=== PATIENT | male | born 1975 | race Caucasian/White ===

== ENCOUNTER 2019-03-19 08:22 | Inpatient (IN) ==
[2019-03-19] MEDS ORDERED: NS 1,000 ML IV ONE ×2 (08:43→10:36)
--- NOTE | 2019-03-19 08:47 | EKG Report ---
Test Performed on : 03/19/2019 08:44:25 AM Test Reason : sob Blood Pressure : / mmHG Vent. Rate : 141 BPM Atrial Rate : 141 BPM P-R Int : 142 ms QRS Dur : 082 ms QT Int : 284 ms P-R-T Axes : 072 081 065 degrees QTc Int : 434 ms Sinus tachycardia. with occasional premature ventricular complexes. Otherwise normal ECG No previous ECGs available Unconfirmed Result
--- NOTE | 2019-03-19 08:57 | PROVIDER DOCUMENTATION ---
HPI-Respiratory General - General Chief Complaint: Shortness of Breath Stated Complaint: sob,weakness,left side cp x 3-4 days Time Seen by Provider: 03/19/19 08:28 Source: patient, family Allergies/Adverse Reactions: Patient Allergies Allergy/AdvReac Type Severity Reaction Status Date / Time No Known Allergies Allergy Verified 03/19/19 08:52 Home Medications: Home Medication List Medication Instructions Recorded Confirmed Last Taken Type Amoxicillin/Potassium Clav 1 ea PO Q12H #30 tab 04/02/19 Unknown Rx [Augmentin 875-125 Tablet] Ferrous Sulfate [Ferrousul] 325 mg PO DAILY #30 tab 04/02/19 Unknown Rx Folic Acid 1 mg PO DAILY #30 tab 04/02/19 Unknown Rx Hydrocodone/APAP 10 mg/325 mg 1 ea PO Q6H PRN #30 tab 04/02/19 Unknown Rx [[place]-10] Polyethylene Glycol 3350 [Miralax] 17 gm PO DAILY #30 powder, packet 04/02/19 Unknown Rx - History of Present Illness-Resp Nature of Presenting Problem: 43 YO M no pmh presents with fiance for increasing SOB x 3 days. Pt states he had double pna 3 months ago. Fiance states pt has had anorexia and weightloss of 20-30 lbs over the past Quality of Pain: reports: aching Severity in ED: reports: moderate Onset/Duration: reports: 3 days ago Timing: reports: still present, constant Cough Quality/Degree: reports: mild Similar Symptoms Previously?: Yes Recently seen or treated by another doctor?: Yes (pt states he was treated for pna 3 months ago) Review of Systems - Adult - REVIEW OF SYSTEMS - ADULT Constitutional: reports: chills, fever Eyes: reports: no symptoms reported Ears, Nose, Mouth & Throat: reports: no symptoms reported Cardiovascular: reports: see HPI, chest pain Respiratory: reports: see HPI, cough, dyspnea on exertion, shortness of breath Gastrointestinal: reports: poor appetite Genitourinary: reports: no symptoms reported Musculoskeletal: reports: no symptoms reported Integumentary: reports: no symptoms reported Neurological: reports: no symptoms reported Psychiatric: reports: no symptoms reported Hematologic/Lymphatic: reports: no symptoms reported Past History - Adult - PAST MEDICAL HISTORY-ADULT Review of Records: reports: Medications Reviewed Major Childhood Illnesses: reports: denies history Cardiovascular: reports: denies history Respiratory: reports: denies history Gastrointestinal: reports: denies history Obstetrical/Gynecological: reports: denies history Genitourinary: reports: denies history Musculoskeletal: reports: denies history Neurological: reports: denies history Psychiatric: reports: denies history Physical Exam-General - PHYSICAL EXAM-ADULT Initial Vital Signs Reviewed: Yes (tachycardia) - CONSTITUTIONAL General Appearance: alert, mild distress, cachetic - EYES Eyes: PERRL/EOMI - HEAD, EARS, NOSE, MOUTH & THROAT HENMT: normocephalic/atraumatic - NECK Neck: supple. negative: trachial deviation - RESPIRATORY Respiratory: respiratory distress (mild, with decreased breath sounds on right side), decreased breath sounds. negative: stridor, wheezing - CARDIOVASCULAR Cardiovascular: tachycardia - GASTROINTESTINAL (ABDOMEN) Abdominal Exam: non tender, soft, other (thin) - MUSCULOSKELETAL Back Exam: no CVA tenderness Extremity: normal inspection, no pedal edema - SKIN Integumentary: warm/dry - NEUROLOGIC Neurologic: grossly normal - PSYCHIATRIC Psych/Mental Status: normal mood/affect, oriented x 3 Progress - PLAN OF CARE/RESULTS Progress/Plan/Lab Results: Orders Category Date Time Status Admit [facility] Routine AdmDCTranf 03/19/19 12:09 Active Activity - Bedrest with BSC ORDERED Care 03/19/19 12:09 Active Apply Mechanical Device [QM] ORDERED Care 03/19/19 12:09 Completed Cardiac Monitoring DIRECTED Care 03/19/19 08:35 Completed Elevate Head of Bed DIRECTED Care 03/19/19 12:09 Active Encourage Fluids DIRECTED Care 03/19/19 12:09 Active IV Insertion ORDERED Care 03/19/19 08:35 Completed Intake and Output-Strict Q 8-HR ASSESS Care 03/19/19 12:09 Active Notify MD of + Sepsis Screen NOW Care 03/19/19 08:35 Completed Notify Physician As Ordered Care 03/19/19 08:35 Completed Nursing- Assist w/ IS as order ORDERED Care 03/19/19 12:09 Active Nursing- MD Consult Request ROUTINE Care 03/19/19 12:09 Completed Turn, Cough and Deep Breathe Q2HR Care 03/19/19 12:09 Active Vital Signs Order Q1H Care 03/19/19 12:09 Completed Z-Document. for Tele Applied ORDERED Care 03/19/19 12:09 Completed MD [Physician/Provider Consults] Routine Cons 03/19/19 11:38 Ordered MD [Physician/Provider Consults] Routine Cons 03/19/19 12:09 Ordered MD [Physician/Provider Consults] Routine Cons 03/19/19 12:09 Ordered CHEST-2 VIEWS [RAD] Stat Exams 03/19/19 08:43 Completed CHEST-PORTABLE [RAD] Routine Exams 03/20/19 06:[address] THORAX W/CONTRAST [CT] Stat Exams 03/19/19 09:15 Completed BLOOD CULTURE [BLDCUL] Stat Lab 03/19/19 09:00 Completed CBC WITH DIFF [HEME] Routine Lab 03/20/19 04:20 Completed CBC WITH DIFF [HEME] Stat Lab 03/19/19 09:00 Completed CK PROFILE [SP CHEM] Stat Lab 03/19/19 09:00 Completed COMPREHENSIVE METABOLIC PANEL [CHEM] Routine Lab 03/20/19 04:30 Completed COMPREHENSIVE METABOLIC PANEL [CHEM] Stat Lab 03/19/19 09:00 Completed D-DIMER [COAG] Stat Lab 03/19/19 09:00 Completed Flu Swab [INFLUENZA SCREEN A/B] Stat Lab 03/19/19 12:13 Completed GRAM STAIN [BLDCUL] Stat Lab 03/19/19 09:00 Completed LACTATE, PLASMA [CHEM] Lab 03/19/19 11:47 Completed LACTATE, PLASMA [CHEM] Lab 03/19/19 16:15 Completed LACTATE, PLASMA [CHEM] Q3H Lab 03/19/19 09:01 Completed MAGNESIUM [CHEM] Stat Lab 03/19/19 09:00 Completed PROTIME WITH INR [COAG] Stat Lab 03/19/19 09:00 Completed PTT [COAG] Stat Lab 03/19/19 09:00 Completed SERUM OSMOLALITY [CHEM] Routine Lab 03/20/19 04:20 Completed TROPONIN T HIGH SENSITIVITY Stat Lab 03/19/19 09:00 Completed TSH Stat Lab 03/19/19 09:00 Completed UR OSMOLALITY [CHEM] Routine Lab 03/20/19 14:20 Completed UR SODIUM [URCHEM] Routine Lab 03/20/19 14:20 Completed URINALYSIS W/POSS RFLX CULT [URINALYSIS] Stat Lab 03/19/19 09:49 Completed URINE MANUAL MICROSCOPIC [URINALYSIS] Stat Lab 03/19/19 09:49 Completed 0.9% Sodium Chloride Inj [Ns] 1,000 ml Med 03/19/19 08:43 Discontinued IV 999 mls/hr 0.9% Sodium Chloride Inj [Ns] 1,000 ml Med 03/19/19 10:36 Discontinued IV 999 mls/hr Acetaminophen [Tylenol] Med 03/19/19 12:07 Discontinued 650 mg PO Q4H PRN PRN Albuterol 2.5MG/Ipratrop 0.5MG [Duoneb (A & A)] Med 03/19/19 12:07 Discontinued 3 ml INH Q2H PRN PRN Albuterol 2.5MG/Ipratrop 0.5MG [Duoneb (A & A)] Med 03/19/19 15:30 Discontinued 3 ml INH RTQ4H Albuterol 2.5MG/Ipratrop 0.5MG [Duoneb (A & A)] Med 03/19/19 08:59 Discontinued 6 ml INH NOW ONE CefEPIME [Maxipime] 1 gm Med 03/19/19 12:09 Discontinued 0.9% Sodium Chloride Inj [Ns] 50 ml IV Q12H CefTRIAXONE [Rocephin] 2 gm Med 03/19/19 10:35 Discontinued 0.9% Sodium Chloride Inj [Ns] 50 ml IV NOW Morphine Med 03/19/19 11:35 Discontinued 4 mg IV NOW ONE Pharmacy Order [Vancomycin IV Per Pharmacy] Med 03/19/19 12:09 Discontinued 1 each MISC DIRECTED Vancomycin 1 gm/Ns Med 03/19/19 10:35 Discontinued 1 gm in 250 ml IV NOW Aerosol Treatments Routine Ot 03/19/19 08:59 Completed Aerosol Treatments Routine Ot 03/19/19 12:09 Completed Aerosol Treatments Stat Ot 03/19/19 08:59 Completed Aerosol Treatments Stat Ot 03/19/19 12:09 Completed Incentive Spirometer Routine Ot 03/19/19 12:09 Completed Oxygen Device Stat Ot 03/19/19 08:35 Completed Pulse Oximetry Routine Ot 03/19/19 12:09 Completed EKG [EKG] Stat Ther 03/19/19 08:42 Draft Venous U/S Bilateral Legs Routine Ther 03/19/19 12:09 Completed Transfer/Admit Order [TRANSFER] Routine Transfer 03/19/19 11:28 Completed Result Diagrams: 03/31/19 06:18 03/31/19 06:18 - REASSESSMENT Reassessment #1 Time Reassessed: 11:46 Status: unchanged (admitting for sepsis 2/2 pneumonia with lung masses most likely malignancy) - EKG 1 Time of EKG reading by physician:: 08:44 EKG Read and Signed by:: Keon Sawant EKG Interpretation (*Must complete 3 of following elements*): Abnormal Rate: 141 Rhythm: sinus tachy [place]: normal QRS: PVC's [place] Interval: normal ST Wave: normal Prior EKG Comparison: no prior EKG - XRAY 1 XRAY Study: Chest Impression: See EMR Report (EXAM: CHEST-2 VIEWS INDICATION: SOB TECHNIQUE: 2 views COMPARISON: None. FINDINGS: There is a very dense opacity on the right involving the mid and lower lung zone and part of the upper lung zone. The costophrenic angle is preserved. Consider a loculated pleural fluid collection, dense infiltrate or even a mass. The left lung is clear. The cardiac silhouette is grossly unremarkable. IMPRESSION: Dense opacity associated with the right lung. CT chest, preferably with IV contrast, should be considered to better evaluate. Electronically signed by Fabio Vazquez 03/19/2019 9:09 AM) - CT/MRI 1 CT Study: Thorax Impression: See EMR Report (EXAM: CT THORAX W/CONTRAST HISTORY: SOB TECHNIQUE: CT chest with intravenous contrast COMPARISON: None. FINDINGS: Large multiloculated right pleural fluid. Prominent atelectasis within each lobe of the right lung. There may be underlying infiltrates as well. Mild emphysematous changes. Tiny infiltrates in the left upper lobe. No left pleural effusion. No cardiomegaly. No aortic aneurysm or dissection. No pulmonary emboli. There are mildly prominent mediastinal nodes. IMPRESSION: Large multiloculated/multiseptated right pleural fluid with prominent right lung atelectasis and possibly underlying infiltrates. This exam was performed using automated exposure control, adjustment of mA or kV according to patient size, and/or use of iterative reconstruction technique. Electronically signed by Otto Rob 03/19/2019 10:44 AM) - CONSULTS/PCP/HOSPITALIST Notification #1 *Consult/PCP/Hospitalist*: Marga Time Discussed: 11:20 Consult Disposition: Will see in ED Departure - Departure Date of Disposition Decision: 03/19/19 Time of Disposition Decision: 11:43 DIAGNOSIS: Pneumonia, Lung mass Disposition: ADMITTED INPATIENT 09 Certified Medical Emergency: Emergent Condition: Stable - Critical Care Note This patient required my direct & personal management of CC.: No Attestation - Physician/ JUSTYN Attestation Patient care was provided by Advanced Practice Provider:: No The physician spent face to face time with patient:: Yes Advanced Practice Provider documentation review:: Supervising physician onsite and consulted in the evaluation and care of this patient. The physician did have a face to face encounter with the patient.
[2019-03-19] MEDS ORDERED: DUONEB (A & A) INH ONE (08:59)
--- NOTE | 2019-03-19 09:11 | Diag Imaging Result Doc PS360 ---
EXAM: CHEST-2 VIEWS INDICATION: SOB TECHNIQUE: 2 views COMPARISON: None. FINDINGS: There is a very dense opacity on the right involving the mid and lower lung zone and part of the upper lung zone. The costophrenic angle is preserved. Consider a loculated pleural fluid collection, dense infiltrate or even a mass. The left lung is clear. The cardiac silhouette is grossly unremarkable. IMPRESSION: Dense opacity associated with the right lung. CT chest, preferably with IV contrast, should be considered to better evaluate. Electronically signed by Fabio Vazquez 03/19/2019 9:09 AM
[2019-03-19 09:28] LABS: BASO# 0.05 X1000 (0.0-0.2); BASO% 0.4 % (0.0-0.8); EOS# 0.04 X1000 (0.0-0.7); EOS% 0.3 % (0.0-10.0); HEMATOCRIT 37.4 % (42.0-52.0); HEMOGLOBIN 12.2 g/dL (14.0-18.0); IMM GRAN# 0.07 X1000 (0.0-0.04); IMM GRAN% 0.6 % (0.0-0.5); LYMPH# 1.45 X1000 (1.2-3.4); MCH 28.4 PG (27-31); MCHC 32.6 g/dL (33-37); MCV 87.2 FL (81-99); MONO# 1.54 X1000 (0.11-0.59); MONO% 12.7 % (1.7-9.3); MPV 9.6 FL (7.4-10.4); NEUT# 8.94 X1000 (1.4-6.5); PLT 603 X1000 (130-400); RBC 4.29 XMIL (4.7-6.1); RDW 13.7 % (11.5-14.5); WBC 12.09 X1000 (4.8-10.8)
[2019-03-19 09:31] LABS: INR 1.13; PROTIME 14.7 Seconds (11.0-16.0); PTT 33.5 Seconds (22.3-41.8)
[2019-03-19 09:52] LABS: ESTIMATED GFR > 60
[2019-03-19 09:56] LABS: AGAP 17; ALB/GLOB RATIO 0.7; ALBUMIN 2.9 g/dL (3.5-5.0); ALKALINE PHOSPHATASE 205 U/L (32-122); BUN 24 mg/dL (8-22); CALCIUM 9.4 mg/dL (8.8-10.2); CHLORIDE 85 mmol/L (98-107); CK PROFILE 13 U/L (24-204); COSMO 263; CREATININE 0.8 mg/dL (0.7-1.2); GLUCOSE 127 mg/dL (70-104); GOT 11 U/L (10-34); GPT 6 U/L (10-44); POTASSIUM 4.8 mmol/L (3.5-5.1); SODIUM 128 mmol/L (136-145); TCO2 26 mmol/L (25-35); TOTAL BILIRUBIN 0.42 mg/dL (0.20-1.00); TOTAL PROTEIN 6.9 g/dL (6.3-8.3)
[2019-03-19 09:58] LABS: URINE SOURCE CLEAN CATCH
[2019-03-19 10:04] LABS: BILIRUBIN URINE NEGATIVE (NEGATIVE); BLOOD URINE NEGATIVE (NEGATIVE); COLOR YELLOW; GLUCOSE URINE NEGATIVE (NEGATIVE); KETONE URINE NEGATIVE (NEGATIVE); LEUKOCYTES URINE NEGATIVE (NEGATIVE); NITRITE URINE NEGATIVE (NEGATIVE); PROTEIN URINE 50 mg/dL (NEGATIVE); SP GRAVITY URINE 1.035; TURBIDITY URINE CLEAR (CLEAR); UROBILINOGEN URINE 3 mg/dL (NORMAL)
[2019-03-19 10:13] LABS: BANDS 4 % (0-1); LYMPHS 8 % (21-51); MONO 4 % (1-9); SEGS 84 % (42-75)
[2019-03-19 10:24] LABS: UR EPITHELIAL CELLS <10 /HPF (<10); URINE BACTERIA NEGATIVE /HPF; URINE CASTS NONE SEEN; URINE CRYSTALS NONE SEEN; URINE RBC <10 /HPF (<10); URINE SMALL ROUND CELLS NONE SEEN; URINE WBC <10 /HPF (<10); URINE YEAST NONE SEEN
[2019-03-19] MEDS ORDERED: ROCEPHIN 2 GM in NS 50 ML IV ONE (10:35)
[2019-03-19] MEDS ORDERED: VANCOMYCIN 1 GM/NS 1 GM/250 ML IVPB IV ONE (10:35)
--- NOTE | 2019-03-19 10:47 | Diag Imaging Result Doc PS360 ---
EXAM: CT THORAX W/CONTRAST HISTORY: SOB TECHNIQUE: CT chest with intravenous contrast COMPARISON: None. FINDINGS: Large multiloculated right pleural fluid. Prominent atelectasis within each lobe of the right lung. There may be underlying infiltrates as well. Mild emphysematous changes. Tiny infiltrates in the left upper lobe. No left pleural effusion. No cardiomegaly. No aortic aneurysm or dissection. No pulmonary emboli. There are mildly prominent mediastinal nodes. IMPRESSION: Large multiloculated/multiseptated right pleural fluid with prominent right lung atelectasis and possibly underlying infiltrates. This exam was performed using automated exposure control, adjustment of mA or kV according to patient size, and/or use of iterative reconstruction technique. Electronically signed by Otto Rob 03/19/2019 10:44 AM
[2019-03-19] MEDS ORDERED: MORPHINE IV ONE (11:35)
[2019-03-19] MEDS ORDERED: TYLENOL PO PRN (12:07)
[2019-03-19] MEDS ORDERED: DUONEB (A & A) INH PRN (12:07)
[2019-03-19] MEDS ORDERED: MAXIPIME 1 GM in NS 50 ML IV SCH (12:09)
[2019-03-19] MEDS ORDERED: VANCOMYCIN IV PER PHARMACY MISC SCH (12:09)
--- NOTE | 2019-03-19 13:08 | PROVIDER PROGRESS NOTE ---
Progress Note Pulmonary: Full consult to follow. Loculated Empyema. Will consult surgery for possible decortication.
[2019-03-19] MEDS ORDERED: MORPHINE IV PRN (14:01)
--- NOTE | 2019-03-19 14:01 | PROVIDER PROGRESS NOTE ---
Progress Note Patient was seen and examined. A full dictation to follow.
[2019-03-19] MEDS: DUONEB (A & A) INH SCH ×3 (14:39→23:31)
[2019-03-19] MEDS ORDERED: VANCOMYCIN 1,500 MG in NS 250 ML IV ONE (15:00)
[2019-03-19] MEDS: DILAUDID IV PRN ×3 (18:44→23:42)
--- NOTE | 2019-03-19 19:09 | HISTORY AND PHYSICAL ---
PRIMARY CARE PROVIDER: None. CHIEF COMPLAINT: Shortness of breath and right-sided chest pain. HISTORY OF PRESENT ILLNESS: Mr. Ríos is a 43-year-old gentleman who reports 3 to 4 weeks ago he was diagnosed with double pneumonia at [facility]. He was given a Z-[place] and inhaler, and sent home. He reports he kind of felt better, tried to return to work, and felt his symptoms got worse. He has been taking [id number] Mucinex, Robitussin, NyQuil and Tylenol to help with his symptoms. He reports a 15 pound weight loss over the course of these 3 to 4 weeks, is really having no appetite. He has just been taking fluids. He does report he still is using tobacco. He is a 2 pack per day smoker. He did smoke marijuana last week. He also reports fever and chills, and a clear productive cough as well as some shortness of breath. He came to the ED to be evaluated. He was found to have a white count of 12. Elevated D-dimer at 3.40. Hyponatremia, and a positive lactate at 2.7. He was also found to be tachycardic and tachypneic as well as hypoxemic on room air. Initial chest x-ray showed dense opacity on the right lung, suggested a CT of the chest that was followed up that showed large multiloculated multi septated right pleural fluid with prominent right lung atelectasis, and possibly underlying infiltrates, but no PE. He is being admitted for sepsis secondary to pneumonia as well as loculated pleural effusions with consult for General Surgery, Pulmonology, and Infectious Disease. PAST MEDICAL HISTORY: Tobacco use and marijuana use. PAST SURGICAL HISTORY: Right thumb surgery and right eyelid surgery. FAMILY HISTORY: His father was shot as a young child. He had a grandmother who had a stroke. Mother had some type of nasal cancer secondary to a chemical exposure. SOCIAL HISTORY: He does have a girlfriend. He is a 2 pack per day smoker, has done so since the age of 12. 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 He does use marijuana intermittently. His last use was a week ago. Really no alcohol. REVIEW OF SYSTEMS: Twelve-point review of systems completely negative except for those mentioned in HPI. PHYSICAL EXAMINATION: VITAL SIGNS: Temperature is 98 degrees, heart rate 130, respirations 24, blood pressure 130/96, and O2 is 95% on 3 L. GENERAL: Mr. Ríos is a pleasant 43-year-old male who is sitting up in the bed, currently not in any acute distress, but he does look concerned. HEENT: Atraumatic, normocephalic. PERRL. NECK: Supple. Trachea midline. CARDIOVASCULAR: S1, S2 appreciated. No murmurs, gallops, or rubs noted. RESPIRATORY: Lung sounds good air entry on the left, could not really appreciate any airway entry on the right. Very decreased. ABDOMEN: Soft and nontender. Nondistended. Positive bowel sounds 4 quadrants. EXTREMITIES: Lower extremities are negative for edema. NEUROLOGIC: No focal deficits noted. DIAGNOSTIC DATA: Chest CT large multiloculated right pleural fluid with prominent right lung atelectasis and possibly underlying infiltrates. No PE. LABORATORY DATA: White count 12, hemoglobin and hematocrit 12 and 37, and platelet count is 603,000. D-dimer 3.40. Sodium 128, potassium 4.8, BUN 24, creatinine 0.8, and blood glucose is 127. Alkaline phosphatase 205, albumin 2.9. Initial lactate 2.7. Repeat 2.1. TSH 0.92. Urinalysis is negative. ASSESSMENT AND PLAN: 1. Sepsis secondary to a right-sided pneumonia. We will continue on broad- spectrum antibiotics. 2. Large multiloculated right pleural fluid with prominent right lung atelectasis and underlying infiltrates. We will consult Dr. Chin to see about possible chest tube placement to drain some of that fluid or possible decortication as well as Infectious Disease and Pulmonology. 3. Right-sided pneumonia. We will continue on broad-spectrum antibiotics, bronchodilators, aggressive pulmonary toilet. Blood cultures and sputum cultures have been obtained. Await recommendations from Dr. Mac. 4. Elevated D-dimer. PE has been ruled out. We are currently awaiting lower extremity Doppler's to rule out DVT. 5. Hyponatremia. Currently awaiting studies. He has been given fluid boluses. We will recheck his sodium in the morning. 6. Tobacco use and abuse. Patient will need continued education on smoking cessation as well as the means to quit. 7. Marijuana use. He will need continued education on cessation. 8. Hypoxemia. We will continue on supplemental O2. 9. Emphysema. Seen on CT scan. Patient does not have a diagnosis of emphysema. I believe pulmonology has seen the patient. 10. Loculated empyema Surgery for possible decortication. 11. Further recommendations to follow physician evaluation, laboratory and diagnostic data. Dictated by ERIN Butler for Nita Barreto MD cc: Nita Barreto MD [facility]
[2019-03-19] MEDS: NS 1,000 ML IV SCH (20:00)
--- NOTE | 2019-03-19 21:08 | INFECTIOUS DISEASE CONSULT REP ---
DATE: 03/19/2019 CONCLUSION: Patient has a multiloculated right pleural effusion with right lung atelectasis. RECOMMENDATIONS: I agree with treating the patient with vancomycin. I have substituted Rocephin for cefepime. Some of the side effects of the antibiotics, including rash, diarrhea, renal toxicity and ototoxicity have been explained to the patient who agrees with treatment. I agree with Dr. Caro that the patient will require decortication. I also discussed with the patient about how important it is that he quit his cigarette smoking. DISCUSSION: The patient tells me approximately 3 weeks ago he became progressively dyspneic. He is coughing, but he only produces a clear sputum. He has lost weight, and he is anorectic. He has had chills, but he does not think he had any fever. The patient's CT scan shows a large multiloculated right pleural fluid with right lung atelectasis. Blood cultures are pending. Swab for influenza is negative. Urinalysis is negative for white cells and bacteria. The patient's CBC shows a white count of 12,090, hemoglobin 12.2, and platelet count 603,000. Creatinine is 0.8. GFR is greater than 60, alkaline phosphatase is 205. PAST MEDICAL HISTORY/REVIEW OF SYSTEMS: Eyes and ears: He has good hearing and vision. Neck: No stiffness. Respiratory: See present illness. Cardiac: No chest pain or palpitations. Gastrointestinal: See present illness. Genitourinary: No dysuria or flank pain. PREVIOUS HOSPITALIZATIONS AND OPERATIONS: He has had surgery on his eye and on his hand. MEDICAL DISEASES: Chronic obstructive pulmonary disease. Negative for diabetes and hypertension. INFECTIOUS DISEASE HISTORY: Negative for pneumonia and UTI. FAMILY HISTORY: Positive for diabetes mellitus and stroke. SOCIAL HISTORY: [place]. He has cats and a dog for pets. He works construction. He smokes cigarettes. He denies drinking alcoholic beverages or abusing drugs. PHYSICAL EXAMINATION: Vital Signs: Temperature is 98 degrees, pulse 130, respirations 24, blood pressure 130/96. The patient is 6 feet 1 inch tall, weighs 150 pounds. General: This is a chronically ill-appearing young male. He is in no acute distress. Head/eyes/ears/nose/throat: He can hear my spoken words and see near objects. He does not have any white coating on his tongue. He has poor oral hygiene. Neck: No meningismus thorax. He has an increased AP diameter. Lungs: Clear on the left side. No breath sounds were present on the right side. Cardiovascular: Heart rate is regular. Abdomen: Soft and nontender. Neurologic: The patient is alert. He can move his extremities. There is no tremor. His memory regarding his medical history appeared to be good. Integument: No rash noted. Thank you for the consult. cc: Fransico Mac MD
[2019-03-20] MEDS: DILAUDID IV PRN ×8 (01:19→23:21)
[2019-03-20] MEDS: VANCOMYCIN 1,900 MG in NS 500 ML IV SCH ×2 (02:32→14:25)
[2019-03-20] MEDS: DUONEB (A & A) INH SCH ×6 (03:30→23:20)
--- NOTE | 2019-03-20 05:31 | GENERAL SURGERY CONSULTATION ---
DATE: 03/19/2019 REASON FOR CONSULTATION: Right-sided loculated effusion. CHIEF COMPLAINT: Shortness of breath. HISTORY OF PRESENT ILLNESS: This is a 43-year-old gentleman who is treated in [facility] a couple of weeks ago for what he said was pneumonia. He was treated as an outpatient. He said he did not really feel any better, and developed worsening shortness of breath over the last 24 to 48 hours, and came to the ER where he was found to be short of breath and tachycardic. CT scan showed a large loculated right effusion. PAST MEDICAL HISTORY: Denies any immunosuppressive disease. He does smoke a pack a day. He works in construction. Denies any IV drugs or recent incarceration. PAST SURGICAL HISTORY: He has had no thoracic surgery. Denies any abdominal surgery. SOCIAL HISTORY: He smokes daily. Drinks alcohol occasionally. He works in construction. FAMILY HISTORY: Reviewed and noncontributory. REVIEW OF SYSTEMS: A 10-point review of systems is negative other than what is mentioned in HPI. PHYSICAL EXAMINATION: On exam, he does have a low-grade tachycardia in the 1 teens to 120s. Blood pressure has been okay in the 130s to 140s. O2 saturation has been in the low 90s. He is actually on nasal cannula at 3 L.General: He is alert in no acute distress. HEENT: No scleral icterus. No cervical masses. Cardiovascular: Sinus tachycardia. Pulmonary: I do not see any scars or subcutaneous air on the right side. There are no anterior chest masses. Respirations are somewhat shallow but nonlabored. Abdomen: Soft. Nontender. Integument: Warm and dry without jaundice. Psychiatric: Appropriate affect. Neurologic: No gross deficits. Lymphatic: No cervical or axillary adenopathy. LABORATORY: White count 12, hematocrit 37, and platelets 603,000. INR is 1.13 and creatinine 0.8. Bilirubin is normal. Mild elevation of his alkaline phosphatase. Urinalysis negative for nitrates and leukocytes. I reviewed a CT scan that shows a large loculated effusion on the right. ASSESSMENT/PLAN: This is a 43-year-old gentleman that is most likely a loculated parapneumonic effusion. I have recommended operative drainage with video assistance in the operating room and chest tube placement as well as bronchoscopy at that time. We discussed risks of bleeding, infection, conversion to open, the anticipated recovery, the likelihood of chest tube and the need for further surgery as well as damage to the lung. He understands all of this and consents. We will make him n.p.o. at midnight. Continue antibiotics and plan for VATS, drainage of the effusion, decortication, bronchoscopy, and possible thoracotomy. cc: Grace Chin MD MTDD
--- NOTE | 2019-03-20 07:15 | Diag Imaging Result Doc PS360 ---
EXAM: CHEST-PORTABLE 03/20/2019 HISTORY: Pneumonia TECHNIQUE: AP portable at 0558 COMMENT: The right hemithorax is now completely opacified. This is worse than on 03/19/2019. Given the appearance of the previous study this is presumably largely due to pneumonia plus minus atelectasis. The possibility of mucous plugging of the right mainstem bronchus cannot be excluded. IMPRESSION: Complete atelectasis and/or pneumonia of the right lung. Electronically signed by Brock Padilla 03/20/2019 7:12 AM
[2019-03-20 07:18] LABS: BASO# 0.04 X1000 (0.0-0.2); BASO% 0.3 % (0.0-0.8); EOS# 0.04 X1000 (0.0-0.7); EOS% 0.3 % (0.0-10.0); HEMATOCRIT 30.9 % (42.0-52.0); HEMOGLOBIN 10.1 g/dL (14.0-18.0); IMM GRAN# 0.11 X1000 (0.0-0.04); IMM GRAN% 0.8 % (0.0-0.5); LYMPH# 1.74 X1000 (1.2-3.4); LYMPH% 12.7 % (20.5-51.1); MCH 28.7 PG (27-31); MCHC 32.7 g/dL (33-37); MCV 87.8 FL (81-99); MONO# 1.95 X1000 (0.11-0.59); MONO% 14.2 % (1.7-9.3); MPV 9.5 FL (7.4-10.4); NEUT# 9.82 X1000 (1.4-6.5); NEUT% 71.7 % (42.2-75.2); PLT 501 X1000 (130-400); RBC 3.52 XMIL (4.7-6.1)
[2019-03-20 07:33] LABS: AGAP 12; ALB/GLOB RATIO 0.5; ALBUMIN 2.1 g/dL (3.5-5.0); ALKALINE PHOSPHATASE 218 U/L (32-122); BUN 15 mg/dL (8-22); CALCIUM 8.6 mg/dL (8.8-10.2); CHLORIDE 91 mmol/L (98-107); COSMO 253; CREATININE 0.5 mg/dL (0.7-1.2); ESTIMATED GFR > 60; GLUCOSE 82 mg/dL (70-104); GOT 16 U/L (10-34); GPT 7 U/L (10-44); SODIUM 126 mmol/L (136-145); TCO2 23 mmol/L (25-35); TOTAL BILIRUBIN 0.38 mg/dL (0.20-1.00); TOTAL PROTEIN 6.1 g/dL (6.3-8.3)
[2019-03-20 07:54] LABS: BANDS 18 % (0-1); LYMPHS 8 % (21-51); MONO 8 % (1-9); SEGS 54 % (42-75)
[2019-03-20 07:55] LABS: LARGE PLATELETS 1+
--- NOTE | 2019-03-20 08:34 | CONSULTATION ---
DATE OF CONSULTATION: 03/19/2019 REQUESTING PROVIDER: ERIN Butler. REASON FOR CONSULTATION: Hypoxia, hypercarbia, and multiple loculated pleural effusions, right. HISTORY OF PRESENT ILLNESS: This is a 43-year-old male with no significant medical history. He presented to the ER early this morning with worsening shortness of breath, weakness, and left-sided chest pain for [address] thorax with contrast revealed large multiloculated right pleural fluid with prominent right lung atelectasis, and possibly underlying infiltrates. Initial blood work showed mild leukocytosis, mild anemia, elevated D-dimer, hyponatremia, and hypokalemia. The patient currently is lying in bed on a nasal cannula at 3 L. He is tachypneic with respiratory rate in the high 20s. He reports a productive cough with white thick sputum for 3 weeks, fever, chills, newly developed right-sided chest pain worsening with cough or any other activities, poor appetite with weight loss of 10 to 16 pounds in the last 3 weeks. He has no bowel habit change. No urination discomfort or pedal edema. He reports he has not slept for over 3 days. He apparently has been treated for double pneumonia with a Z- Allen and some inhaler by [facility] 3 weeks ago. He did feel better after Z-Allen therapy, but he continuously has a productive cough. PAST MEDICAL HISTORY: Recent pneumonia treated by [facility] outpatient with Z- Allen and inhaler 3 weeks ago. SOCIAL HISTORY: The patient lives at home with his girlfriend. He smokes 1 pack per day since age of 12. He has no alcohol or illicit drug use. FAMILY HISTORY: Reviewed and noncontributory. ALLERGIES: No known drug allergies. REVIEW OF SYSTEMS: A 10-point review of systems was conducted, and the pertinent is listed within the HPI. Otherwise noncontributory. PHYSICAL EXAMINATION: Vital Signs: Temperature 98, blood pressure 130/96, pulse 130, respiratory rate 24, and oxygen saturation 95% on nasal cannula 3L. General: Lying in bed with some mild distress. Cachectic. HEENT: Atraumatic, normocephalic. Trachea midline. Mucosa pink and moist. Respiratory: Tachypneic with increased work of breathing, but no accessory muscle use. Auscultation revealed significant diminished breathing sounds on the right-sided lung. No wheezing or crackles noted. Cardiovascular: Sinus tachycardia. S1 and S2 noted. Gastrointestinal: Soft and nontender. Flat. Normoactive bowel sounds in all 4 quadrants. Extremities: No pedal edema. No cyanosis. No clubbing. Dorsalis pedis 2+ bilaterally. Neurologic: Alert and oriented x3. Speech fluent. Follows commands. LABORATORY DATA: White blood cell 12.09, hemoglobin 12.2, hematocrit 37.4, and platelets 603,000. D-dimer 3.40. Sodium 128, potassium 4.8, chloride 85, carbon dioxide 26, BUN 24, creatinine 0.8, glucose 127, CPK 13, alkaline phosphatase 205, and albumin 2.9. IMAGING DATA: CT thorax with contrast in HPI. ASSESSMENT: This is a 43-year-old male with recently diagnosed with double pneumonia. He has been admitted with large multiloculated or multiseptated right pleural fluid with prominent right lung atelectasis and possible underlying infiltrates. 1. Acute respiratory distress. 2. Large loculated right empyema with prominent right lung atelectasis and possible underlying infiltrates. 3. Ongoing tobacco use. PLAN: 1. Continue supplemental oxygen as needed. 2. We will consult surgeon for possible decortication. 3. Continue antibiotic including vancomycin and ceftriaxone. Continue bronchodilators. 4. Follow up with CBC, CMP, blood culture, sputum culture, and procalcitonin and chest x-ray. Check ABG if indicated. 5. Daily smoking cessation education. 6. Further recommendations pending hospital course. Thank you for the courtesy of this consult. Dictated by ERIN Peng for Misael Caro MD cc: ERIN Peng MD [facility]
[2019-03-20] MEDS: NS 1,000 ML IV SCH ×2 (09:07→23:21)
[2019-03-20] MEDS: ROCEPHIN 2 GM in NS 50 ML IV SCH (09:11)
--- NOTE | 2019-03-20 10:29 | PROVIDER PROGRESS NOTE ---
Progress Note Dr. Caro Progress Note/Pulmonary and or critical care We appreciated progress of care, Complications, change in diagnosis, and instructions to patient under direct supervision of Dr. Caro. Subjective: We note the level of consciousness, bed (chair) position, family presence (if any), level of lethargy, feeling of symptoms, and changes from baseline condition/symptom. The patient feels same. He c/o dry mouth as he is on NPO since midnight. Still having right chest pain with activities, especially coughing and deep breath. Objective: Vital Signs: We reviewed EMR current values for Pulse rate, Blood pressure, Pulse rate, respiratory rate and Pulse oximetry. Also noted other values and trends if present (e.g. I/O, CVP). Vital Signs 03/19/19 14:39 03/19/19 17:16 03/19/19 17:30 Temperature Pulse Rate 110 H 101 H 113 H Respiratory Rate 18 32 H 31 H Blood Pressure 123/99 141/96 O2 Sat by Pulse Oximetry 94 L 96 03/19/19 17:45 03/19/19 18:00 03/19/19 18:15 Temperature Pulse Rate 116 H 123 H 131 H Respiratory Rate 32 H 28 H 35 H Blood Pressure 145/95 144/92 145/95 O2 Sat by Pulse Oximetry 95 95 94 L 03/19/19 18:30 03/19/19 18:45 03/19/19 18:46 Temperature Pulse Rate 123 H 135 H 136 H Respiratory Rate 36 H 28 H 31 H Blood Pressure 148/100 151/95 O2 Sat by Pulse Oximetry 96 94 L 94 L 03/19/19 19:00 03/19/19 19:15 03/19/19 19:30 Temperature Pulse Rate 130 H 126 H 127 H Respiratory Rate 36 H 35 H 26 H Blood Pressure 146/98 147/96 142/93 O2 Sat by Pulse Oximetry 96 95 95 03/19/19 19:43 03/19/19 19:45 03/19/19 20:00 Temperature 99.8 F H Pulse Rate 103 H 119 H 123 H Respiratory Rate 25 H 19 29 H Blood Pressure 141/95 127/98 O2 Sat by Pulse Oximetry 96 94 L 96 03/19/19 20:15 03/19/19 20:30 03/19/19 20:45 Temperature Pulse Rate 115 H 117 H 111 H Respiratory Rate 38 H 37 H 33 H Blood Pressure 141/92 134/106 144/94 O2 Sat by Pulse Oximetry 94 L 94 L 95 03/19/19 21:00 03/19/19 21:15 03/19/19 21:30 Temperature Pulse Rate 107 H 113 H 108 H Respiratory Rate 26 H 32 H 30 H Blood Pressure 137/88 147/98 134/93 O2 Sat by Pulse Oximetry 96 93 L 94 L 03/19/19 21:45 03/19/19 22:00 03/19/19 22:15 Temperature Pulse Rate 113 H 107 H 109 H Respiratory Rate 30 H 29 H 34 H Blood Pressure 143/100 136/93 136/89 O2 Sat by Pulse Oximetry 96 94 L 97 03/19/19 22:30 03/19/19 22:45 03/19/19 23:00 Temperature Pulse Rate 110 H 107 H 105 H Respiratory Rate 27 H 27 H 27 H Blood Pressure 132/87 132/85 130/87 O2 Sat by Pulse Oximetry 97 96 97 03/19/19 23:15 03/19/19 23:30 03/19/19 23:45 Temperature Pulse Rate 112 H 97 H 108 H Respiratory Rate 23 27 H 30 H Blood Pressure 144/96 145/97 135/94 O2 Sat by Pulse Oximetry 97 96 97 03/20/19 00:00 03/20/19 00:15 03/20/19 00:30 Temperature 99.0 F Pulse Rate 110 H 109 H 113 H Respiratory Rate 26 H 25 H 27 H Blood Pressure 136/93 143/90 139/95 O2 Sat by Pulse Oximetry 96 96 97 03/20/19 00:45 03/20/19 01:00 03/20/19 01:15 Temperature Pulse Rate 115 H 103 H 110 H Respiratory Rate 24 25 H 30 H Blood Pressure 147/91 135/88 138/90 O2 Sat by Pulse Oximetry 96 96 96 03/20/19 01:30 03/20/19 01:45 03/20/19 02:00 Temperature Pulse Rate 112 H 114 H 111 H Respiratory Rate 23 28 H 21 Blood Pressure 137/89 138/95 127/87 O2 Sat by Pulse Oximetry 95 95 95 03/20/19 02:15 03/20/19 02:30 03/20/19 02:45 Temperature Pulse Rate 108 H 114 H 114 H Respiratory Rate 22 32 H 19 Blood Pressure 138/89 140/96 132/85 O2 Sat by Pulse Oximetry 96 96 95 03/20/19 03:00 03/20/19 03:15 03/20/19 03:30 Temperature Pulse Rate 112 H 107 H 104 H Respiratory Rate 21 22 20 Blood Pressure 130/90 140/96 132/92 O2 Sat by Pulse Oximetry 95 96 96 03/20/19 03:45 03/20/19 04:00 03/20/19 04:15 Temperature 98.3 F Pulse Rate 127 H 117 H 110 H Respiratory Rate 24 30 H 24 Blood Pressure 129/102 145/98 136/93 O2 Sat by Pulse Oximetry 97 95 96 03/20/19 04:30 03/20/19 04:45 03/20/19 05:00 Temperature Pulse Rate 113 H 111 H 117 H Respiratory Rate 22 21 20 Blood Pressure 137/92 138/88 133/90 O2 Sat by Pulse Oximetry 96 96 96 03/20/19 05:15 03/20/19 05:30 03/20/19 05:45 Temperature Pulse Rate 124 H 112 H 117 H Respiratory Rate 29 H 20 21 Blood Pressure 148/89 137/90 124/82 O2 Sat by Pulse Oximetry 94 L 97 97 03/20/19 06:00 03/20/19 07:00 03/20/19 07:15 Temperature Pulse Rate 113 H 122 H 108 H Respiratory Rate 24 25 H 27 H Blood Pressure 141/93 132/93 108/63 O2 Sat by Pulse Oximetry 95 97 96 03/20/19 07:26 03/20/19 07:30 03/20/19 07:34 Temperature 99.8 F H Pulse Rate 122 H 118 H Respiratory Rate 25 H 21 21 Blood Pressure 132/93 137/98 O2 Sat by Pulse Oximetry 97 97 94 L 03/20/19 07:45 03/20/19 08:00 03/20/19 08:15 Temperature Pulse Rate 128 H 124 H 111 H Respiratory Rate 20 23 23 Blood Pressure 138/99 136/109 141/94 O2 Sat by Pulse Oximetry 97 96 97 03/20/19 08:30 03/20/19 08:45 03/20/19 09:00 Temperature Pulse Rate 112 H 112 H 118 H Respiratory Rate 24 23 31 H Blood Pressure 140/94 133/87 149/101 O2 Sat by Pulse Oximetry 96 97 96 03/20/19 09:16 03/20/19 09:34 03/20/19 09:46 Temperature Pulse Rate 124 H 130 H 112 H Respiratory Rate 24 20 23 Blood Pressure 147/100 137/95 140/100 O2 Sat by Pulse Oximetry 94 L 95 95 03/20/19 10:01 03/20/19 10:16 03/20/19 10:31 Temperature Pulse Rate 120 H 113 H 110 H Respiratory Rate 20 18 16 Blood Pressure 139/90 131/89 149/92 O2 Sat by Pulse Oximetry 97 97 97 03/20/19 10:46 03/20/19 11:01 03/20/19 11:12 Temperature 100.2 F H Pulse Rate 105 H 115 H 115 H Respiratory Rate 20 21 21 Blood Pressure 134/89 144/98 144/98 O2 Sat by Pulse Oximetry 97 97 97 03/20/19 11:16 03/20/19 11:31 03/20/19 11:46 Temperature Pulse Rate 119 H 114 H 125 H Respiratory Rate 18 28 H 22 Blood Pressure 146/101 148/102 158/99 O2 Sat by Pulse Oximetry 96 96 95 03/20/19 12:01 03/20/19 12:16 03/20/19 12:31 Temperature Pulse Rate 119 H 126 H 120 H Respiratory Rate 25 H 26 H 18 Blood Pressure 139/92 141/94 130/79 O2 Sat by Pulse Oximetry 96 94 L 97 03/20/19 12:56 Temperature 100.2 F H Pulse Rate 115 H Respiratory Rate 21 Blood Pressure 144/98 O2 Sat by Pulse Oximetry Intake & Output 03/19/19 03/20/19 03/20/19 19:59 07:59 19:59 Intake Total 2330 / 2330 650 / 650 Output Total 940 / 940 400 / 400 Balance 1390 / 1390 250 / 250 Intake: Intake, IV Amount 750 / 750 600 / 600 Intake, IVPB 500 / 500 50 / 50 Intake, Oral Amount 1080 / 1080 Output: Output, Urine Void Amount 940 / 940 Output, Urine Young Amount 400 / 400 Physical Examination: General: Lying in bed with no acute distress noted. HEENT: Trachea midline. Mucosa pink and dry. Chest: Symmetrical excursion. Significantly diminished breathing sounds on the right-sided lung. Clear on the left-sided lung. CVS: Tachycardia. S1 S2. Abdomen: Soft. Flat. Non-tender. Bowel sounds present. Extremities: No pedal edema/cyanosis/clubbing. Dorsalis pedis 2+ b/l. Neuro: A/O x4. Speech fluent. Follow commands. Labs and Radiology: Reviewed available labs and radiology values available at time of EMR review. Laboratory Results 03/19/19 03/19/19 03/19/19 09:10 13:10 16:15 WBC RBC Hgb Hct MCV MCH MCHC RDW Std Deviation Plt Count MPV Immature Gran % (Auto) Neut % (Auto) Lymph % (Auto) [place] % (Auto) Eos % (Auto) Baso % (Auto) Immature Gran # (Auto) Neut # (Auto) Lymph # (Auto) [place] # (Auto) Eos # (Auto) Baso # (Auto) Segmented Neutrophils Band Neutrophils Lymphocytes Monocytes Metamyelocytes Myelocytes Atypical Lymphocytes Large Platelets Sodium Potassium Chloride Carbon Dioxide Anion Gap BUN Creatinine Estimated GFR/1.73 m2 BUN/Creatinine Ratio Glucose Serum Osmolality Calculated Osmolality Calcium Total Bilirubin AST ALT Alkaline Phosphatase Total Protein Albumin Globulin Albumin/Globulin Ratio Plasma Lactate 1.5 Carcinoembryonic Ag Immunoglobulins G,A,M SEE COMMENTS Blood Type Blood Type Confirm O POSITIVE Antibody Screen 03/20/19 03/20/19 03/20/19 04:20 04:20 04:20 WBC 13.70 H RBC 3.52 L Hgb 10.1 L D Hct 30.9 L MCV 87.8 MCH 28.7 MCHC 32.7 L RDW Std Deviation 14.0 Plt Count 501 H MPV 9.5 Immature Gran % (Auto) 0.8 H Neut % (Auto) 71.7 Lymph % (Auto) 12.7 L [place] % (Auto) 14.2 H Eos % (Auto) 0.3 Baso % (Auto) 0.3 Immature Gran # (Auto) 0.11 H Neut # (Auto) 9.82 H Lymph # (Auto) 1.74 [place] # (Auto) 1.95 H Eos # (Auto) 0.04 Baso # (Auto) 0.04 Segmented Neutrophils 54 Band Neutrophils 18 H Lymphocytes 8 L Monocytes 8 Metamyelocytes 4.0 Myelocytes 4.0 Atypical Lymphocytes 4.0 Large Platelets 1+ Sodium Potassium Chloride Carbon Dioxide Anion Gap BUN Creatinine Estimated GFR/1.73 m2 BUN/Creatinine Ratio Glucose Serum Osmolality 263 L Calculated Osmolality Calcium Total Bilirubin AST ALT Alkaline Phosphatase Total Protein Albumin Globulin Albumin/Globulin Ratio Plasma Lactate Carcinoembryonic Ag 1.1 Immunoglobulins G,A,M Blood Type Blood Type Confirm Antibody Screen 03/20/19 03/20/19 04:30 09:10 WBC RBC Hgb Hct MCV MCH MCHC RDW Std Deviation Plt Count MPV Immature Gran % (Auto) Neut % (Auto) Lymph % (Auto) [place] % (Auto) Eos % (Auto) Baso % (Auto) Immature Gran # (Auto) Neut # (Auto) Lymph # (Auto) [place] # (Auto) Eos # (Auto) Baso # (Auto) Segmented Neutrophils Band Neutrophils Lymphocytes Monocytes Metamyelocytes Myelocytes Atypical Lymphocytes Large Platelets Sodium 126 L Potassium 4.0 D Chloride 91 L Carbon Dioxide 23 L Anion Gap 12 BUN 15 Creatinine 0.5 L Estimated GFR/1.73 m2 > 60 BUN/Creatinine Ratio 30 Glucose 82 Serum Osmolality Calculated Osmolality 253 Calcium 8.6 L Total Bilirubin 0.38 AST 16 ALT 7 L Alkaline Phosphatase 218 H Total Protein 6.1 L Albumin 2.1 L Globulin 4.0 Albumin/Globulin Ratio 0.5 Plasma Lactate Carcinoembryonic Ag Immunoglobulins G,A,M Blood Type O POSITIVE Blood Type Confirm Antibody Screen NEGATIVE Dr. Caro evaluated and additional note below. Evaluation time in minutes: 33 minutes. Assessment: Acute respiratory distress Large multiloculated/multiseptated right pleural fluid with prominent right lung atelectasis and possible pneumonia Severe right pleurisy Mild emphysema Ongoing tobacco use Plan: Continue current treatment and supportive care per admitting and other teams on the case. Antibiotics. Bronchodilators. VATS right decortication/drainage by Dr. Chin planned today Appropriate DVT and GI prophylaxis. Input was appreciated from Admitting MD and other teams on the case. See additional notes by Dr. Caro.
[2019-03-20] MEDS ORDERED: XYLOCAINE-MPF 1% ONE (11:32)
[2019-03-20] MEDS ORDERED: SENSORCAINE-MPF 0.5%/EPI 1:200,000 ONE (11:32)
[2019-03-20] MEDS ORDERED: LR 1,000 ML ONE (11:33)
[2019-03-20] MEDS: ZOFRAN IV PRN (12:08)
[2019-03-20] MEDS ORDERED: DIPRIVAN 1% ONE (13:05)
[2019-03-20] MEDS ORDERED: FENTANYL ONE (13:07)
[2019-03-20] MEDS ORDERED: ROBINUL ONE (13:17)
[2019-03-20] MEDS ORDERED: ZOFRAN ONE (14:05)
[2019-03-20] MEDS ORDERED: DECADRON ONE (14:05)
[2019-03-20] MEDS ORDERED: NORCURON ONE (14:08)
[2019-03-20] MEDS ORDERED: QUELICIN (DOSE) ONE (14:08)
[2019-03-20] MEDS ORDERED: SODIUM CHLORIDE 0.9% 10 ML ONE (14:08)
[2019-03-20] MEDS ORDERED: XYLOCAINE-MPF 2% ONE (14:09)
[2019-03-20] MEDS ORDERED: NEOSTIGMINE ONE (14:23)
[2019-03-20] MEDS: DILAUDID ONE ×5 (15:10→16:45)
[2019-03-20 15:25] LABS: URINE SOURCE CATH
[2019-03-20 15:29] LABS: BILIRUBIN URINE NEGATIVE (NEGATIVE); BLOOD URINE NEGATIVE (NEGATIVE); COLOR YELLOW; GLUCOSE URINE NEGATIVE (NEGATIVE); KETONE URINE NEGATIVE (NEGATIVE); LEUKOCYTES URINE NEGATIVE (NEGATIVE); NITRITE URINE NEGATIVE (NEGATIVE); PROTEIN URINE TRACE mg/dL (NEGATIVE); SP GRAVITY URINE 1.023; TURBIDITY URINE CLEAR (CLEAR); UROBILINOGEN URINE 2 mg/dL (NORMAL)
[2019-03-20 15:31] LABS: UR EPITHELIAL CELLS <10 /HPF (<10); URINE BACTERIA NEGATIVE /HPF; URINE RBC <10 /HPF (<10); URINE WBC <10 /HPF (<10)
[2019-03-20] MEDS: TORADOL ONE ×2 (15:32→16:45)
--- NOTE | 2019-03-20 15:50 | Diag Imaging Result Doc PS360 ---
EXAM: CHEST-PORTABLE 03/20/2019 HISTORY: Bronch. thoracoscopy TECHNIQUE: AP portable upright at 1540 COMMENT: There are two chest tubes in the right hemithorax. There is a small pneumothorax superior laterally. There is alveolar opacity in the right lower lobe and some apparent atelectasis in the right upper lobe. The left lung is clear. There has been marked improvement in the pneumatization of the right lung since the previous examination of this date at 0558. IMPRESSION: Improved atelectasis of the right lung. Evacuation of large pleural fluid collection. Residual atelectasis or pneumonia right lower lobe. Electronically signed by Brock Padilla 03/20/2019 3:48 PM
--- NOTE | 2019-03-20 21:13 | OPERATIVE NOTE ---
PROCEDURE DATE: 03/20/2019 PREOPERATIVE DIAGNOSIS: Right parapneumonic effusion post loculated. POSTOPERATIVE DIAGNOSIS: Right chest empyema. PROCEDURE PERFORMED: 1. Bronchostomy with right lower lobe bronchoalveolar lavage. 2. Video-assisted thoracoscopic drainage of right empyema. 3. Placement of chest tubes x2. 4. Pleural biopsy. ANESTHESIA: General. INDICATION: A gentleman who was diagnosed with pneumonia apparently 2 weeks ago. He developed worsening shortness of breath, and came to the ER with a leukocytosis and a right-sided effusion was likely. Drainage is indicated. OPERATIVE FINDINGS: 1. There was 2.5 L of purulent foul-smelling fluid in the right chest. There is fibrinous tissue in the lung, but overall the loculations were disrupted. The pleura was very thickened and inflamed. 2. Bronchoscopic evaluation showed normal left-sided airways. There was dense mucous plugging in the bronchus intermedius extending down to the right middle lobe and right lower lobe that was suctioned until clear, but no bronchial lesions. OPERATIVE NOTE: Risks, benefits and alternatives were discussed with the patient who consented to the procedure. He was seen preoperatively. The surgical site was confirmed and marked. He was taken to the operating room and placed in the supine position. General anesthesia induced. A single-lumen endotracheal tube was placed. After time-out, a bronchoscopy was performed with above findings. We did lavage the right lower lobe and collected this in a Lukens trap and sent it for studies. At this point, the tube was exchanged by a double-lumen endotracheal tube by our anesthesia colleagues. He was placed in left lateral decubitus position. His right chest was prepped with chlorhexidine and draped in the usual fashion. After time-out, we made an incision off the tip of the scapula approximately 2 rib spaces down and entered the chest. The pleura was very thickened. We entered this bluntly and countered a large amount of purulent material under pressure. We suctioned this until clear 2.5 L total. Then, we placed our thoracoscope and inspected, disrupting the loculations, making sure to drain all the collections. We did this adequately although down to the diaphragm anteriorly, posteriorly and apically. At this point, an anterior incision was made. A 90 degree 32-[place] chest tube was placed. We did irrigate the cavity as well with saline. We placed a 36-[place] tube posterior and apically. There was no injury to underlying lung. There was minimal blood loss. We secured these with 0 Ethibond sutures. Dressing was applied. He tolerated it well. Tube was placed to suction. He was transferred to recovery. I spoke with family. cc: Grace Chin MD
--- NOTE | 2019-03-20 21:37 | PROGRESS NOTE ---
DATE: 03/20/2019 SUBJECTIVE: The patient went to the OR and underwent a VATS. OBJECTIVE: Vital Signs: Temperature 98.6 degrees, blood pressure 135/93, heart rate 125, respirations 16, O2 saturation 96% on 3 L nasal cannula. General: This is a chronically, ill- appearing, middle-aged male lying in bed in no acute distress. Heart: S1, S2 normal. Tachycardic. Lungs: Poor air entry in the right lung field. Abdomen: Positive bowel sounds. Soft, nontender, nondistended. Extremities: No edema, no cyanosis. Neurologic: The patient is alert and oriented x3. LABORATORY DATA: White blood cell count 13, hemoglobin 10, hematocrit 30, platelets 501,000. Sodium 126, potassium 4, chloride 91, CO2 23, BUN 15, creatinine 0.5, glucose 82, alkaline phosphatase 218, albumin 2.1. ASSESSMENT AND PLAN: 1. Acute hypoxemic respiratory failure secondary to loculated pleural effusion and pneumonia. The patient underwent a video-assisted thoracoscopic surgery procedure this afternoon. Continue with the current management as directed by the general surgeon and streetcar repairer helper. 2. Status post video-assisted thoracoscopic surgery. We will follow up the culture results. Continue with broad-spectrum antibiotics as directed by Dr. Mac. 3. Pneumonia. Continue on the current antibiotic regimen. 4. Tobacco dependence. The patient has been counseled about smoking cessation. 5. Hyponatremia. The patient's sodium is lower today. The patient is currently on IV fluids with no improvement. Will likely need to try fluid restriction. 6. Deep vein thrombosis prophylaxis. The patient is on SCDs. We will defer to the general surgeon in reference to starting Lovenox. cc: Nita Barreto MD
[2019-03-21] MEDS: VANCOMYCIN 1,900 MG in NS 500 ML IV SCH (02:08)
[2019-03-21] MEDS: DILAUDID IV PRN ×7 (02:20→22:29)
[2019-03-21] MEDS: ZOFRAN IV PRN (02:20)
[2019-03-21] MEDS: DUONEB (A & A) INH SCH ×5 (03:24→20:00)
[2019-03-21] MEDS: NS 1,000 ML IV SCH (05:59)
[2019-03-21 06:02] LABS: BASO# 0.06 X1000 (0.0-0.2); BASO% 0.4 % (0.0-0.8); EOS# 0.02 X1000 (0.0-0.7); EOS% 0.1 % (0.0-10.0); HEMATOCRIT 33.4 % (42.0-52.0); HEMOGLOBIN 10.7 g/dL (14.0-18.0); IMM GRAN% 1.3 % (0.0-0.5); LYMPH# 1.33 X1000 (1.2-3.4); LYMPH% 8.3 % (20.5-51.1); MCH 28.5 PG (27-31); MCV 88.8 FL (81-99); MONO# 1.55 X1000 (0.11-0.59); MONO% 9.7 % (1.7-9.3); MPV 9.5 FL (7.4-10.4); NEUT# 12.84 X1000 (1.4-6.5); NEUT% 80.2 % (42.2-75.2); PLT 633 X1000 (130-400); RBC 3.76 XMIL (4.7-6.1)
[2019-03-21 06:46] LABS: AGAP 11; ALB/GLOB RATIO 0.5; ALBUMIN 1.9 g/dL (3.5-5.0); ALKALINE PHOSPHATASE 203 U/L (32-122); BUN 16 mg/dL (8-22); CALCIUM 8.7 mg/dL (8.8-10.2); CHLORIDE 91 mmol/L (98-107); COSMO 259; CREATININE 0.5 mg/dL (0.7-1.2); ESTIMATED GFR > 60; GLUCOSE 103 mg/dL (70-104); GOT 19 U/L (10-34); GPT 8 U/L (10-44); POTASSIUM 4.5 mmol/L (3.5-5.1); SODIUM 128 mmol/L (136-145); TCO2 26 mmol/L (25-35); TOTAL BILIRUBIN 0.36 mg/dL (0.20-1.00)
[2019-03-21 06:47] LABS: IRON SATURATION 12 %; TIBC 142 ug/dL; TOTAL IRON 17 ug/dL (53-167); UNBOUND IRON 125 ug/dL (112-346)
[2019-03-21 07:14] LABS: FERRITIN 549 ng/mL (30-400)
[2019-03-21] MEDS: ROCEPHIN 2 GM in NS 50 ML IV SCH (09:26)
--- NOTE | 2019-03-21 12:01 | PROVIDER PROGRESS NOTE ---
Progress Note Dr. Caro Progress Note/Pulmonary and or critical care We appreciated progress of care, Complications, change in diagnosis, and instructions to patient under direct supervision of Dr. Caro. Subjective: We note the level of consciousness, bed (chair) position, family presence (if any), level of lethargy, feeling of symptoms, and changes from baseline condition/symptom. The patient is having lunch. He is on 2.5L NC and tolerates well. He moans once with sharp right chest pain, but after moaning, he states he is ok. Objective: Vital Signs: We reviewed EMR current values for Pulse rate, Blood pressure, Pulse rate, respiratory rate and Pulse oximetry. Also noted other values and trends if present (e.g. I/O, CVP). Vital Signs 03/20/19 17:02 03/20/19 17:31 03/20/19 18:01 Temperature Pulse Rate 125 H 134 H 125 H Respiratory Rate 18 19 16 Blood Pressure 130/91 143/101 135/93 O2 Sat by Pulse Oximetry 96 97 96 03/20/19 18:31 03/20/19 19:01 03/20/19 19:31 Temperature Pulse Rate 129 H 122 H 112 H Respiratory Rate 25 H 23 19 Blood Pressure 132/102 128/92 135/107 O2 Sat by Pulse Oximetry 96 97 99 03/20/19 19:35 03/20/19 20:00 03/20/19 20:01 Temperature 97.1 F L 97.1 F L Pulse Rate 114 H 102 H 102 H Respiratory Rate 23 17 17 Blood Pressure 135/100 135/100 O2 Sat by Pulse Oximetry 98 98 98 03/20/19 20:31 03/20/19 21:02 03/20/19 21:31 Temperature Pulse Rate 122 H 120 H 114 H Respiratory Rate 24 29 H 16 Blood Pressure 145/109 151/97 134/85 O2 Sat by Pulse Oximetry 97 98 98 03/20/19 22:01 03/20/19 22:31 03/20/19 23:01 Temperature Pulse Rate 100 H 104 H 94 H Respiratory Rate 13 16 15 Blood Pressure 125/85 124/83 117/80 O2 Sat by Pulse Oximetry 98 98 98 03/20/19 23:20 03/20/19 23:31 03/21/19 00:00 Temperature 97.0 F L Pulse Rate 96 H 98 H Respiratory Rate 22 16 Blood Pressure 136/96 135/78 O2 Sat by Pulse Oximetry 96 98 99 03/21/19 00:01 03/21/19 00:31 03/21/19 01:01 Temperature 97.0 F L Pulse Rate 98 H 89 109 H Respiratory Rate 16 20 16 Blood Pressure 135/98 127/89 138/97 O2 Sat by Pulse Oximetry 99 98 98 03/21/19 01:31 03/21/19 02:01 03/21/19 02:31 Temperature Pulse Rate 101 H 90 105 H Respiratory Rate 19 22 18 Blood Pressure 132/96 134/96 138/92 O2 Sat by Pulse Oximetry 99 99 98 03/21/19 03:01 03/21/19 03:24 03/21/19 03:31 Temperature Pulse Rate 95 H 92 H Respiratory Rate 18 17 Blood Pressure 133/97 139/90 O2 Sat by Pulse Oximetry 98 97 96 03/21/19 04:00 03/21/19 04:01 03/21/19 04:31 Temperature 97.1 F L 97.1 F L Pulse Rate 97 H 97 H 113 H Respiratory Rate 20 20 16 Blood Pressure 137/103 137/103 120/88 O2 Sat by Pulse Oximetry 99 99 98 03/21/19 05:01 03/21/19 05:31 03/21/19 06:01 Temperature Pulse Rate 107 H 109 H 114 H Respiratory Rate 17 16 19 Blood Pressure 138/94 132/93 133/97 O2 Sat by Pulse Oximetry 96 97 97 03/21/19 06:02 03/21/19 06:31 03/21/19 06:57 Temperature Pulse Rate 113 H 94 H 99 H Respiratory Rate 17 18 18 Blood Pressure 133/92 133/92 O2 Sat by Pulse Oximetry 98 97 97 03/21/19 06:59 03/21/19 07:30 03/21/19 07:59 Temperature Pulse Rate 106 H 130 H 125 H Respiratory Rate 20 14 23 Blood Pressure 136/98 156/103 140/100 O2 Sat by Pulse Oximetry 98 98 95 03/21/19 08:00 03/21/19 08:01 03/21/19 08:29 Temperature 98.1 F Pulse Rate 125 H 125 H 119 H Respiratory Rate 23 17 27 H Blood Pressure 140/100 145/94 O2 Sat by Pulse Oximetry 95 95 96 03/21/19 08:35 03/21/19 08:59 03/21/19 09:29 Temperature Pulse Rate 122 H 109 H 122 H Respiratory Rate 25 H 19 21 Blood Pressure 140/90 142/94 O2 Sat by Pulse Oximetry 96 97 96 03/21/19 09:59 03/21/19 10:00 03/21/19 10:29 Temperature Pulse Rate 103 H 107 H 103 H Respiratory Rate 18 15 18 Blood Pressure 137/91 137/89 O2 Sat by Pulse Oximetry 97 96 98 03/21/19 10:59 03/21/19 11:00 03/21/19 11:29 Temperature Pulse Rate 99 H 96 H 101 H Respiratory Rate 25 H 16 15 Blood Pressure 145/92 128/82 O2 Sat by Pulse Oximetry 98 97 98 03/21/19 11:59 03/21/19 12:00 03/21/19 12:29 Temperature 98.2 F Pulse Rate 117 H 117 H 113 H Respiratory Rate 21 21 23 Blood Pressure 145/106 145/106 146/97 O2 Sat by Pulse Oximetry 100 100 95 03/21/19 12:59 03/21/19 13:29 03/21/19 13:59 Temperature Pulse Rate 107 H 97 H 111 H Respiratory Rate 26 H 16 26 H Blood Pressure 144/97 139/89 139/97 O2 Sat by Pulse Oximetry 97 98 97 03/21/19 14:00 03/21/19 14:29 03/21/19 14:59 Temperature Pulse Rate 110 H 101 H 115 H Respiratory Rate 20 19 22 Blood Pressure 141/91 137/89 O2 Sat by Pulse Oximetry 98 98 98 03/21/19 15:00 03/21/19 15:29 03/21/19 15:59 Temperature Pulse Rate 99 H 107 H 107 H Respiratory Rate 20 21 26 H Blood Pressure 154/96 140/93 O2 Sat by Pulse Oximetry 97 97 98 03/21/19 16:00 Temperature Pulse Rate 100 H Respiratory Rate 21 Blood Pressure O2 Sat by Pulse Oximetry 98 Intake & Output 03/20/19 03/21/19 03/21/19 19:59 07:59 19:59 Intake Total 2700 / 6585 3885 / 6585 1100 / 1100 Output Total 1020 / 2425 1405 / 2425 595 / 595 Balance 1680 / 4160 2480 / 4160 505 / 505 Intake: Intake, IV Amount 900 / 2024 150 / 150 Intake, IVPB 300 / 1380 1080 / 1380 50 / 50 OR IV Intake 1500 / 1500 LR 1500 / 1500 Intake, Oral Amount 1680 / 1680 900 / 900 Output: Output, Urine Young Amount 750 / 1590 840 / 1590 525 / 525 Output, Chest Tube #1 250 / 720 470 / 720 70 / 70 Output, Chest Tube #2 95 / 95 0 / 0 Output, Estimated Blood Loss 20 / 20 Amount Physical Examination: General: Lying in bed with no acute distress noted. HEENT: Trachea midline. Mucosa pink and moist. Chest: Symmetrical excursion. Significantly diminished breathing sounds on the right-sided lung. Clear on the left-sided lung. Chest tubes in place. CVS: Tachycardia. S1 S2. Abdomen: Soft. Flat. Non-tender. Bowel sounds present. Extremities: No pedal edema/cyanosis/clubbing. Dorsalis pedis 2+ b/l. Neuro: A/O x4. Speech fluent. Follow commands. Labs and Radiology: Reviewed available labs and radiology values available at time of EMR review. Laboratory Results 03/19/19 03/20/19 03/21/19 13:10 14:20 05:00 WBC RBC Hgb Hct MCV MCH MCHC RDW Std Deviation Plt Count MPV Immature Gran % (Auto) Neut % (Auto) Lymph % (Auto) Bill[place] % (Auto) Eos % (Auto) Baso % (Auto) Immature Gran # (Auto) Neut # (Auto) Lymph # (Auto) Bill[place] # (Auto) Eos # (Auto) Baso # (Auto) Sodium 128 L Potassium 4.5 Chloride 91 L Carbon Dioxide 26 Anion Gap 11 BUN 16 Creatinine 0.5 L Estimated GFR/1.73 m2 > 60 BUN/Creatinine Ratio 32 Glucose 103 Calculated Osmolality 259 Calcium 8.7 L Iron TIBC % Saturation Unsat Iron Binding Ferritin Total Bilirubin 0.36 AST 19 ALT 8 L Alkaline Phosphatase 203 H Total Protein 6.0 L Albumin 1.9 L Globulin 4.1 Albumin/Globulin Ratio 0.5 Carcinoembryonic Ag Vitamin B12 Folate Procalcitonin SEE COMMENTS Random Vancomycin Non-Gen Cytology Smear REFERRED FOR TESTING 03/21/19 03/21/19 03/21/19 05:00 05:00 05:00 WBC 16.00 H RBC 3.76 L Hgb 10.7 L Hct 33.4 L MCV 88.8 MCH 28.5 MCHC 32.0 L RDW Std Deviation 14.0 Plt Count 633 H MPV 9.5 Immature Gran % (Auto) 1.3 H Neut % (Auto) 80.2 H Lymph % (Auto) 8.3 L Billings % (Auto) 9.7 H Eos % (Auto) 0.1 Baso % (Auto) 0.4 Immature Gran # (Auto) 0.20 H Neut # (Auto) 12.84 H Lymph # (Auto) 1.33 Billings # (Auto) 1.55 H Eos # (Auto) 0.02 Baso # (Auto) 0.06 Sodium Potassium Chloride Carbon Dioxide Anion Gap BUN Creatinine Estimated GFR/1.73 m2 BUN/Creatinine Ratio Glucose Calculated Osmolality Calcium Iron 17 L TIBC 142 % Saturation 12 Unsat Iron Binding 125 Ferritin Total Bilirubin AST ALT Alkaline Phosphatase Total Protein Albumin Globulin Albumin/Globulin Ratio Carcinoembryonic Ag 1.2 Vitamin B12 Folate Procalcitonin Random Vancomycin Non-Gen Cytology Smear 03/21/19 03/21/19 03/21/19 05:00 05:00 13:37 WBC RBC Hgb Hct MCV MCH MCHC RDW Std Deviation Plt Count MPV Immature Gran % (Auto) Neut % (Auto) Lymph % (Auto) Billings % (Auto) Eos % (Auto) Baso % (Auto) Immature Gran # (Auto) Neut # (Auto) Lymph # (Auto) Billings # (Auto) Eos # (Auto) Baso # (Auto) Sodium Potassium Chloride Carbon Dioxide Anion Gap BUN Creatinine Estimated GFR/1.73 m2 BUN/Creatinine Ratio Glucose Calculated Osmolality Calcium Iron TIBC % Saturation Unsat Iron Binding Ferritin 549 H Total Bilirubin AST ALT Alkaline Phosphatase Total Protein Albumin Globulin Albumin/Globulin Ratio Carcinoembryonic Ag Vitamin B12 1906 H Folate 3.5 L Procalcitonin Random Vancomycin 11.10 Non-Gen Cytology Smear Dr. Caro evaluated and additional note below. Evaluation time in minutes: 34 minutes. Assessment: Acute respiratory distress Large multiloculated/multiseptated right pleural fluid with prominent right lung atelectasis and possible pneumonia. S/P bronchostomy with right lower lobe bronchoalveolar lavage, video-assisted thoracoscopic drainage of right empyema, placement of chest tubes x2 and pleural biopsy. Severe right pleurisy Mild emphysema Ongoing tobacco use Plan: Continue current treatment and supportive care per admitting and other teams on the case. Antibiotics. Bronchodilators. VATS right decortication/drainage by Dr. Chin planned today Appropriate DVT and GI prophylaxis. Input was appreciated from Admitting MD and other teams on the case. See additional notes by Dr. Caro.
[2019-03-21] MEDS: VANCOMYCIN 2,000 MG in NS 500 ML IV SCH (15:16)
[2019-03-21] MEDS ORDERED: ZOSYN 3.375 GM in NS 50 ML IV SCH (15:45)
--- NOTE | 2019-03-21 16:00 | GENERAL SURGERY PROGRESS NOTE ---
DATE: 03/21/2019 SUBJECTIVE: He is breathing much more comfortably. He remains tachycardic at times. He is saturating high 90s on nasal cannula 3 L. Chest tubes are to -20 suction draining purulent material. There is no air leak. He is breathing comfortably. I reviewed his labs. LABS: His white count is up to 16, hematocrit 33, creatinine 0.5. Sodium remains low. I reviewed his microbiology as well. He has coag-negative staph growing out of his blood. The bronchial washings showed no bacteria and the pleural fluid Gram stain is showing multiple organisms, gram-negative cocci and gram-negative rods, 4+ gram-negative rods, 1+ gram-negative cocci. He has not had an x-ray yet today. ASSESSMENT/PLAN: 43-year-old gentleman who had drainage of a very large empyema yesterday in the operating room video-assisted as well as bronchoscopy. His post procedure x-ray showed good expansion of the lung with evacuation of the collection. Chest tubes in place. We will keep the tubes to suction until the output decreases. Follow up his microbiology. He will need to continue broad-spectrum antibiotics. I would recommend immunosuppressive workup as well given that he was surprisingly not ill from 2.5 L of pus within his chest. My partners will follow-up for the weekend. I will be out of town. cc: Grace Chin MD
--- NOTE | 2019-03-21 17:12 | Extremity Venous Study ---
PROCEDURE NAME: Venous U/S Bilateral Legs - 03/19/2019 SOFTWARE LEAD: Morena REQUESTING PROVIDER: ERIN Butler INDICATIONS FOR STUDY: Elevated D-dimer. FINDINGS: Deep superficial veins of bilateral lower extremities were visualized along their course. All vessels compressible with forward flow and no evidence of intraluminal thrombus. SUMMARY: No deep or superficial venous thrombosis in bilateral lower extremities. cc: Grace Chin MD
[2019-03-21] MEDS: ZOSYN 3.375 GM in NS 50 ML IV SCH (18:06)
[2019-03-21] MEDS: LOVENOX SUBQ SCH (20:22)
[2019-03-21] MEDS: ICAR-C PO SCH (20:22)
--- NOTE | 2019-03-21 22:10 | PROGRESS NOTE ---
DATE: 03/21/2019 SUBJECTIVE: The patient is resting comfortably in bed. He states that his pain is under good control. OBJECTIVE: Vital signs: Temperature 98.3 degrees, blood pressure 147/89, heart rate 115, respirations 19, O2 saturation 97% on 2 L nasal cannula, intake 1 L, output 595. General: This is a chronically ill-appearing male, lying in bed in no acute distress. Heart: S1, S2 normal, tachycardic. Lungs: Diminished breath sounds in the right lung field. Abdomen: Positive bowel sounds, soft, nontender, nondistended. Extremities: No edema, no cyanosis. Neurologic: The patient is alert and oriented x4. LABORATORIES: White blood cell count 16, hemoglobin 10, hematocrit 33 platelets 633,000. Sodium 128, potassium 4.5, chloride 91, CO2 26, BUN 16, creatinine 0.5 glucose 103, albumin 1.9. ASSESSMENT AND PLAN: 1. Acute hypoxemic respiratory failure secondary to pneumonia and empyema Continue with the current treatment regimen. 2. Status post video-assisted thorascopic surgery (VATS). Chest tube management as per the general surgeon. 3. Pneumonia. Continue on the current antibiotic regimen as directed by Dr. Mac. 4. Tobacco dependence. The patient has been counseled about smoking cessation. 5. Severe protein calorie malnutrition. Continue with Ensure with each meal. 6. Hyponatremia. Slightly improved. Continue to monitor closely. 7. Deep vein thrombosis prophylaxis. We will start the patient on Lovenox. 8. Iron deficiency anemia. The patient has been started on iron supplementation. cc: Nita Barreto MD MTDD
--- NOTE | 2019-03-21 23:14 | INFECTIOUS DISEASE PROGRESS NO ---
DATE: 03/21/2019 PRESENT ILLNESS: Mr. Ríos is status post video-assisted thoracoscopic drainage of a right empyema with chest tube placements x2 and bronchostomy with right lower lobe lavage. MEDICATIONS: He has been receiving IV vancomycin per pharmacy dosing and Rocephin 2 g IV every 24 hours. PHYSICAL EXAMINATION: Vital signs: Temperature is 98.2 degrees, pulse rate 104, respiratory rate 19, blood pressure 154/96. O2 saturation is 97% on 2 L nasal cannula. General: This is a chronically ill-appearing middle-aged gentleman sitting up in bed, currently in no acute distress. HEENT: Atraumatic, normocephalic. Oral mucous membranes are pink and moist. Conjunctivae are pink. Neck: Supple. Trachea is midline. Cardiovascular: Heart rate and rhythm are regular. Normal sinus rhythm on the monitor. Respiratory: Lung sounds are bilaterally diminished posteriorly with chest tubes x2 in place on the right, draining serosanguineous fluid into the Atriums. No [id number] is noted. Abdomen: Soft, flat, and nontender. Bowel sounds are active. Neurologic: He is awake, alert, oriented and able to move around independently in the bed, but very slowly due to pain from the incisions. LABORATORY AND X-RAY: Today his white count is 16, hemoglobin 10.7, platelet count 633,000. Creatinine is 0.5 with estimated GFR of greater than 60. Total bilirubin is 0.36, AST 19, ALT 8, alkaline phosphatase 203. Immunoglobulins show an IgA of 459 and IgG of 1112. The bronchial washings from surgery yesterday show no growth on the Gram stain or the preliminary culture. The chest fluid Gram stain shows 1+ gram-negative cocci and 4+ gram-negative rods with no growth on the culture and no anaerobes thus far on the preliminary reports. There was also a previously obtained sputum which so far has shown normal elziabeth on the preliminary report. Blood cultures show 1/2 growing a coag-negative staph, which is considered a contaminant. Chest x-ray done yesterday, postoperatively, showed improved atelectasis of the right lung and evacuation of a large pleural fluid collection with residual pneumonia or atelectasis to the right lower lobe. ASSESSMENT AND PLAN: Mr. Ríos has had removal of a loculated effusion with empyema, from the right lung. The patient states he is feeling much better today. There was 2.5 L of purulent, foul-smelling fluid in the right chest that was removed. There has been an increase in his leukocytosis. Based on these findings, we will discontinue Rocephin and replace it with Zosyn 3.375 g IV every 6 hours, and continue vancomycin while awaiting the surgical cultures. These plans have been discussed with and recommended by Dr. Mac. COMORBIDITIES: For Mr. Ríos include cigarette smoking with COPD and protein calorie malnutrition. Dictated by ERIN Foote for Fransico Mac MD cc: Fransico Mac MD [facility]
[2019-03-22] MEDS: ZOSYN 3.375 GM in NS 50 ML IV SCH ×5 (00:52→23:16)
[2019-03-22] MEDS: DILAUDID IV PRN ×6 (01:25→21:41)
[2019-03-22] MEDS: DUONEB (A & A) INH SCH ×6 (03:27→19:43)
[2019-03-22] MEDS: VANCOMYCIN 2,000 MG in NS 500 ML IV SCH ×2 (03:29→15:26)
[2019-03-22 06:46] LABS: AGAP 11; BASO# 0.19 X1000 (0.0-0.2); BASO% 1.2 % (0.0-0.8); BUN 9 mg/dL (8-22); CALCIUM 8.2 mg/dL (8.8-10.2); CHLORIDE 90 mmol/L (98-107); COSMO 252; CREATININE 0.5 mg/dL (0.7-1.2); EOS# 0.14 X1000 (0.0-0.7); EOS% 0.9 % (0.0-10.0); ESTIMATED GFR > 60; GLUCOSE 89 mg/dL (70-104); HEMATOCRIT 32.1 % (42.0-52.0); HEMOGLOBIN 10.3 g/dL (14.0-18.0); IMM GRAN# 0.46 X1000 (0.0-0.04); LYMPH# 1.58 X1000 (1.2-3.4); LYMPH% 10.4 % (20.5-51.1); MCH 29.1 PG (27-31); MCHC 32.1 g/dL (33-37); MCV 90.7 FL (81-99); MONO# 1.19 X1000 (0.11-0.59); MONO% 7.8 % (1.7-9.3); MPV 9.7 FL (7.4-10.4); NEUT# 11.66 X1000 (1.4-6.5); NEUT% 76.7 % (42.2-75.2); PLT 547 X1000 (130-400); POTASSIUM 3.8 mmol/L (3.5-5.1); RBC 3.54 XMIL (4.7-6.1); RDW 14.9 % (11.5-14.5); SODIUM 126 mmol/L (136-145); TCO2 25 mmol/L (25-35); WBC 15.22 X1000 (4.8-10.8)
--- NOTE | 2019-03-22 07:09 | Diag Imaging Result Doc PS360 ---
EXAM: CHEST-PORTABLE 03/22/2019 HISTORY: s/p VATS TECHNIQUE: AP portable at 0503 COMMENT: There are chest tubes on the right. There has been some improvement in the opacification of the right lower lobe compared to the previous study of 03/20/2019, this despite the relatively less optimal inspiration on today's study. IMPRESSION: Improved atelectasis versus pneumonia right lower lobe. Electronically signed by Brock Padilla 03/22/2019 7:06 AM
[2019-03-22] MEDS ORDERED: SAMSCA PO ONE (08:11)
[2019-03-22] MEDS: MIRALAX PO SCH ×2 (08:48→21:02)
[2019-03-22] MEDS: ICAR-C PO SCH ×2 (08:48→21:02)
[2019-03-22] MEDS: COLACE PO SCH ×2 (08:48→21:02)
--- NOTE | 2019-03-22 12:39 | GENERAL SURGERY PROGRESS NOTE ---
DATE: 03/22/2019 SUBJECTIVE: Patient seems to be doing okay. He seems to be oxygenating okay. His chest tubes are in place. They still have drainage. One looks still purulent. His chest x-ray still shows some haziness in the lower aspect of his lung. Both chest tubes are still to suction. Will keep him that way for right now, for at least another 24 hours. His white blood cell count went up yesterday, but his labs this morning are pending. He has been hemodynamically stable but would like to observe him for right now and hold the course and again maybe tomorrow take his chest tubes off suction. cc: Jean Carlos Wallace MD
--- NOTE | 2019-03-22 16:13 | INFECTIOUS DISEASE PROGRESS NO ---
DATE: 03/22/2019 PRESENT ILLNESS: The patient has pneumonia and empyema. He is status post surgery on his empyema. MEDICATIONS: The patient is on vancomycin and yesterday the Rocephin was discontinued and the patient was put on Zosyn. This is day 3 of vancomycin and day 1 of Zosyn. PHYSICAL EXAMINATION: Vital Signs: Temperature is 98 degrees, pulse 129, respirations 20, blood pressure 148/89. General: This is a chronically ill-appearing, middle-aged male. He is in no acute distress. Head/eyes/ears/nose/throat: He can hear my spoken words and see near objects. He does not have any white coating on his tongue. Neck: No pain with movement. Thorax: The patient has drains in place on his right side. The left lung is clear. The right lung, I can hear breath sounds in now and prior to surgery, there were no breath sounds that were audible. Cardiovascular: Heart rate is regular. Abdomen: Soft and nontender. Neurologic: The patient is alert. He can move his extremities. There is no tremor. LAB AND X-RAY: Chest x-ray shows improvement in the pneumonia in the patient's right lower lobe. [place] [address], hemoglobin 10.3, and platelet count 547,000. Creatinine is 0.5. GFR is greater than 60. Procalcitonin is 2.3, which translates into that the patient is very likely to have pneumonia. IgG is 1112, IgA is 459. All chest cultures thus far are negative. Bronchial washings and sputum are growing normal elizabeth. 1/2 blood cultures grew a coagulase-negative Staph. This is a contaminant and does not require treatment. ASSESSMENT AND PLAN: Patient has pneumonia and empyema. He is status post surgery for the empyema. My plan is to continue the current antibiotics, namely vancomycin and Zosyn pending culture results. COMORBIDITIES: Cigarette smoking, chronic obstructive pulmonary disease, and protein calorie malnutrition. cc: Franisco Mac MD
--- NOTE | 2019-03-22 18:12 | PROGRESS NOTE ---
DATE: 03/22/2019 SUBJECTIVE: The patient is sitting up, eating breakfast. He states that he feels a lot better and his pain is under better control. OBJECTIVE: Vital Signs: Temperature 98.7 degrees, blood pressure 135/94, heart rate 129, respirations 12, and O2 saturation 94% on 2 liters nasal cannula. Intake 2.2 L and output 3.7 L. General: This is a chronically ill-appearing middle-aged male, sitting up in bed in no acute distress. Heart: S1, S2 normal. Tachycardic. Lungs: Diminished breath sounds in the right lung field. No wheezing. Abdomen: Positive bowel sounds. Soft, nontender, nondistended. Extremities: No edema, no cyanosis. Neurologic: The patient is alert and oriented x4. LABS: White blood cell count 15, hemoglobin 10, hematocrit 32, platelets 547,000. Sodium 126, potassium 3.8, chloride 90, CO2 of 25, BUN 9, creatinine 0.5, glucose 89. ASSESSMENT AND PLAN: 1. Acute hypoxemic respiratory failure secondary to pneumonia with empyema. Continue on the current treatment regimen. 2. Status post video-assisted thoracoscopic surgery (VATS) secondary to a empyema. So far, the cultures are negative. Continue with antibiotics. Chest tube management as per the general surgeon. 3. Pneumonia. Continue with antibiotic therapy and bronchodilator therapy. 4. Hyponatremia. We will give the patient a dose of Samsca. 5. Severe protein-calorie malnutrition. Continue with Ensure with each meal. 6. Tobacco dependence. The patient has been counseled about smoking cessation. 7. Iron deficiency anemia. Continue with iron supplementation. 8. Deep vein thrombosis prophylaxis. Continue on Lovenox. cc: Nita Barreto MD
[2019-03-22] MEDS ORDERED: D5W 1,000 ML IV SCH (20:30)
--- NOTE | 2019-03-22 20:54 | PULMONOLOGY PROGRESS NOTE ---
DATE: 03/22/2019 SUBJECTIVE: The patient is awake, alert and conversant. He is able to deep breathe and cough. OBJECTIVE: The patient has been afebrile for the last 24 hours. Blood pressure 140/83, heart rate 129, respiratory rate 16, oxygen saturation 93%. HEENT: Pupils are equal and reactive. Oropharynx appears clear. Neck is supple. Chest reveals pleural rub at the right base. Cardiac exam: Increased rate, regular rhythm. Abdomen is soft. Extremities without edema. LABORATORY DATA: Microbiology reveals no new data. DIAGNOSTIC DATA: Chest x-ray reveals improved aeration at the right base. IMPRESSION: A 43-year-old with: 1. Pneumonia. 2. Empyema. 3. Ongoing tobacco use/nicotine addiction. PLAN: 1. Continue antibiotics per Infectious Disease. 2. Continue bronchial hygiene. 3. Continue chest tube management per General Surgery. 4. Encourage smoking cessation. cc: Bryon Cobian MD
[2019-03-22] MEDS: LACTULOSE PO SCH (21:02)
[2019-03-22] MEDS: LOVENOX SUBQ SCH (21:03)
[2019-03-23] MEDS: DILAUDID IV PRN ×6 (01:30→21:23)
[2019-03-23] MEDS: DUONEB (A & A) INH SCH ×6 (01:43→23:30)
[2019-03-23] MEDS: VANCOMYCIN 2,000 MG in NS 500 ML IV SCH ×2 (02:44→15:47)
[2019-03-23] MEDS: ZOSYN 3.375 GM in NS 50 ML IV SCH ×3 (05:36→17:44)
[2019-03-23 05:50] LABS: BASO# 0.06 X1000 (0.0-0.2); BASO% 0.5 % (0.0-0.8); EOS# 0.03 X1000 (0.0-0.7); EOS% 0.2 % (0.0-10.0); HEMATOCRIT 30.9 % (42.0-52.0); HEMOGLOBIN 9.6 g/dL (14.0-18.0); IMM GRAN# 0.54 X1000 (0.0-0.04); IMM GRAN% 4.5 % (0.0-0.5); LYMPH# 1.66 X1000 (1.2-3.4); LYMPH% 13.7 % (20.5-51.1); MCH 28.1 PG (27-31); MCHC 31.1 g/dL (33-37); MCV 90.4 FL (81-99); MONO# 1.14 X1000 (0.11-0.59); MONO% 9.4 % (1.7-9.3); NEUT# 8.69 X1000 (1.4-6.5); NEUT% 71.7 % (42.2-75.2); PLT 696 X1000 (130-400); RBC 3.42 XMIL (4.7-6.1); RDW 14.6 % (11.5-14.5); WBC 12.12 X1000 (4.8-10.8)
[2019-03-23 06:08] LABS: AGAP 10; BUN 6 mg/dL (8-22); CALCIUM 8.8 mg/dL (8.8-10.2); CHLORIDE 98 mmol/L (98-107); COSMO 278; CREATININE 0.6 mg/dL (0.7-1.2); ESTIMATED GFR > 60; GLUCOSE 109 mg/dL (70-104); POTASSIUM 4.1 mmol/L (3.5-5.1); SODIUM 140 mmol/L (136-145); TCO2 32 mmol/L (25-35)
[2019-03-23] MEDS: ICAR-C PO SCH ×2 (07:59→20:28)
[2019-03-23] MEDS: LACTULOSE PO SCH ×2 (07:59→20:29)
[2019-03-23] MEDS: COLACE PO SCH ×2 (07:59→20:28)
[2019-03-23] MEDS: MIRALAX PO SCH ×2 (07:59→20:29)
--- NOTE | 2019-03-23 08:14 | Diag Imaging Result Doc PS360 ---
EXAM: CHEST-PORTABLE INDICATION: s/p VATS TECHNIQUE: One view COMPARISON: 03/22/2019 FINDINGS: Dual right chest tubes are in stable positions. The right lower lobe atelectasis and/or infiltrate has probably marginally improved. The left lung remains clear. No new consolidation is identified. Cardiac silhouette is stable. IMPRESSION: Marginal improvement of atelectasis and infiltrate at the right lung base. Electronically signed by Fabio Vazquez 03/23/2019 8:11 AM
[2019-03-23] MEDS ORDERED: D5W 1,000 ML IV SCH (09:15)
--- NOTE | 2019-03-23 14:22 | GENERAL SURGERY PROGRESS NOTE ---
DATE: 03/23/2019 SUBJECTIVE: The patient seems to be doing okay. Nursing staff reports no major issues. Chest tube still has drainage. His chest x-ray looks a little bit better to me, but official report is pending. We will place his chest tubes to water seal. We will continue to monitor him but we will keep him through the weekend. cc: Jean Carlos Wallace MD
[2019-03-23] MEDS: LOVENOX SUBQ SCH (20:29)
[2019-03-23] MEDS: DULCOLAX PR SCH ×2 (21:24→21:30)
--- NOTE | 2019-03-23 22:11 | PROGRESS NOTE ---
DATE: 03/23/2019 SUBJECTIVE: The patient is sitting up in bed. He has been putting out large amounts of urine, over 14 L so far. OBJECTIVE: Vital signs: Temperature 98.7 degrees, blood pressure 132/91, heart rate 104, respirations 24, O2 saturation 97% on 2 L nasal cannula. General: This is a chronically ill- appearing elderly male sitting up in bed in no acute distress. Heart: S1, S2 normal, tachycardic. Lungs: Diminished breath sounds in the right lung field. Abdomen: Positive bowel sounds, soft, nontender, nondistended. Extremities: No edema, no cyanosis. Neurologic: The patient is alert and oriented x3. LABS: White blood cell count 12, hemoglobin 9.6, hematocrit 30, platelets 696,000. Sodium 140, potassium 4.1, chloride 98, CO2 32, BUN 6, creatinine 0.6, glucose 109. ASSESSMENT AND PLAN: 1. Acute hypoxemic respiratory failure secondary to pneumonia with empyema. Continue on the current treatment regimen. 2. Status post video-assisted thorascopic surgery (VATS) secondary to an empyema. Slowly improving. The culture is growing Fusobacterium. The patient remains on antibiotic therapy. Chest tube management as per the general surgeon. 3. Pneumonia. Continue with the current antibiotic regimen. 4. Hyponatremia. Resolved. 5. Severe protein calorie malnutrition. Continue on Ensure. 6. Iron deficiency anemia. Continue with iron supplementation. 7. Tobacco dependence. The patient has been counseled about smoking cessation. 8. Deep vein thrombosis prophylaxis. Continue on Lovenox. cc: Nita Barreto MD
--- NOTE | 2019-03-23 22:42 | PULMONOLOGY PROGRESS NOTE ---
DATE: 03/23/2019 SUBJECTIVE: The patient is awake, alert, and conversant. He continues to have some purulent sputum. He reports his appetite is increasing. OBJECTIVE: Vital Signs: The patient has been afebrile for the last 24 hours. Blood pressure 142/95, heart rate 93, respiratory rate 14, oxygen saturation 97% on 2 L. HEENT: Pupils are equal and reactive. Oropharynx is clear. Neck: Supple. Chest: Reveals crackles at the right base with 2 chest tubes in position. Cardiac: S1-S2. Abdomen: Soft. Extremities: Without edema. 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 White blood count 12.12, hemoglobin 9.6, platelet count 696,000. Chest x-ray is unchanged to marginally improved to right base. IMPRESSION: A 43-year-old with: 1. Pneumonia. 2. Empyema. 3. Ongoing tobacco use/nicotine addiction. PLAN: 1. Continue bronchial hygiene. 2. Continue antibiotics per Infectious disease 3. Anticipate transfer out of the ICU. 4. Encourage smoking cessation. 5. Chest tube management per General Surgery. cc: Bryon Cobian MD
[2019-03-24] MEDS: DILAUDID IV PRN ×8 (01:18→22:58)
[2019-03-24] MEDS: ZOSYN 3.375 GM in NS 50 ML IV SCH ×4 (01:19→20:06)
[2019-03-24] MEDS: VANCOMYCIN 2,000 MG in NS 500 ML IV SCH ×2 (03:37→14:55)
[2019-03-24] MEDS: DUONEB (A & A) INH SCH ×6 (03:39→23:14)
[2019-03-24 06:39] LABS: BASO# 0.03 X1000 (0.0-0.2); BASO% 0.2 % (0.0-0.8); EOS# 0.11 X1000 (0.0-0.7); EOS% 0.7 % (0.0-10.0); HEMATOCRIT 28.6 % (42.0-52.0); HEMOGLOBIN 8.9 g/dL (14.0-18.0); IMM GRAN# 0.34 X1000 (0.0-0.04); IMM GRAN% 2.2 % (0.0-0.5); LYMPH# 2.21 X1000 (1.2-3.4); LYMPH% 14.2 % (20.5-51.1); MCH 28.3 PG (27-31); MCHC 31.1 g/dL (33-37); MCV 90.8 FL (81-99); MONO# 1.11 X1000 (0.11-0.59); MONO% 7.2 % (1.7-9.3); MPV 8.8 FL (7.4-10.4); NEUT# 11.72 X1000 (1.4-6.5); NEUT% 75.5 % (42.2-75.2); PLT 646 X1000 (130-400); RBC 3.15 XMIL (4.7-6.1); RDW 14.9 % (11.5-14.5); WBC 15.52 X1000 (4.8-10.8)
[2019-03-24 07:15] LABS: AGAP 10; BUN 5 mg/dL (8-22); CALCIUM 8.4 mg/dL (8.8-10.2); CHLORIDE 93 mmol/L (98-107); COSMO 260; CREATININE 0.5 mg/dL (0.7-1.2); ESTIMATED GFR > 60; GLUCOSE 99 mg/dL (70-104); POTASSIUM 3.3 mmol/L (3.5-5.1); SODIUM 131 mmol/L (136-145); TCO2 28 mmol/L (25-35)
[2019-03-24] MEDS ORDERED: KLOR-CON PO ONE (07:17)
--- NOTE | 2019-03-24 07:45 | Diag Imaging Result Doc PS360 ---
EXAM: CHEST-PORTABLE HISTORY: s/p VATS TECHNIQUE: Single view COMPARISON: 03/23/2019 FINDINGS: No change in the right-sided chest tubes. No pneumothorax. There are increased interstitial markings in the right lung base similar to the prior study. No cardiomegaly. No pulmonary edema. The left lung remains clear. IMPRESSION: No pneumothorax identified on the current study. Electronically signed by Otto Rob 03/24/2019 7:43 AM
[2019-03-24] MEDS: MIRALAX PO SCH ×3 (08:07→20:15)
[2019-03-24] MEDS: ICAR-C PO SCH ×2 (08:07→20:06)
[2019-03-24] MEDS: COLACE PO SCH ×2 (08:07→20:06)
[2019-03-24] MEDS: LACTULOSE PO SCH ×2 (08:07→20:15)
[2019-03-24] MEDS ORDERED: PERCOCET-5 PO PRN (09:42)
--- NOTE | 2019-03-24 09:46 | GENERAL SURGERY PROGRESS NOTE ---
DATE: 03/24/2019 SUBJECTIVE: Patient doing okay. He was transferred out of the ICU. OBJECTIVE: Vital Signs: Patient is currently afebrile. His vital signs are stable. General: No acute distress. Cardiovascular: Regular rate and rhythm. Lungs: Chest tubes in place without an air leak. Minimal drainage. Abdomen: Soft, nontender. LABORATORY DATA: Currently pending. ASSESSMENT AND PLAN: A 43-year-old gentleman status post drainage of purulence in the chest. Postoperative state at this time. Continue chest tube drainage. Will have Dr. Chin see again in the morning. We will remove his Young catheter. cc: Jean Carlos Wallace MD
[2019-03-24] MEDS: PERCOCET-10 PO PRN ×2 (10:47→15:17)
--- NOTE | 2019-03-24 17:05 | PROGRESS NOTE ---
DATE: 03/24/2019 SUBJECTIVE: The patient complains of right chest wall pain where the chest tubes are located. He states that he has been eating and having bowel movements. OBJECTIVE: Vital Signs: Temperature 97.9 degrees, blood pressure 150/81, heart rate 97, respirations 22, O2 saturation is 99% on 2 L nasal cannula. General: This is a chronically ill- appearing, middle-aged male lying in bed, in no acute distress. Heart: S1, S2 normal. Regular rate and rhythm. Lungs: Equal air entry bilaterally. No wheezing. Abdomen: Positive bowel sounds. Soft, nontender, nondistended. Extremities: No edema. No cyanosis. Neurologic: The patient is alert and oriented x3. LABS: White blood cell count 15, hemoglobin 8.9, hematocrit 28, platelets 646,000. Sodium 131, potassium 3.3, chloride 93, CO2 28, BUN 5, creatinine 0.5, glucose 99, magnesium 1.9. ASSESSMENT AND PLAN: 1. Acute hypoxemic respiratory failure secondary to pneumonia with empyema. Continue with the current treatment regimen. 2. Status post video-assisted thoracoscopy surgery with decortication secondary to right-sided empyema. Continue with antibiotics and chest tube management as per the General Surgeon. 3. Pneumonia. Continue on the current antibiotic regimen. 4. Hyponatremia. Continue to monitor closely. 5. Severe protein calorie malnutrition. Continue with Ensure with each meal. 6. Iron deficiency anemia. Continue with iron supplementation. 7. Tobacco dependence. Continue to correctional counselor the patient about smoking cessation. 8. Deep vein thrombosis prophylaxis. Continue on Lovenox. cc: Nita Barreto MD
--- NOTE | 2019-03-24 19:41 | PULMONOLOGY PROGRESS NOTE ---
DATE: 03/24/2019 SUBJECTIVE: The patient is awake, alert, and conversant. With some coughing he does have grossly purulent drainage noted in 1 of the 2 chest tubes. Vital signs: Blood pressure 133/94, heart rate 97, respiratory rate 20, oxygen saturation 100%. HEENT: Pupils are equal and reactive. Oropharynx appears clear. Neck: Supple. Chest: Reveals coarse breath sounds at the right base. Cardiac: S1-S2. Abdomen: Soft . Extremities: Without edema. LABORATORIES: Chest x-ray reveals stable chest tube placement. Increased markings at the right base. White blood count 15.5, hemoglobin 8.9, platelet count 646,000. Sodium 131, potassium 3.3, chloride 93, bicarbonate 28, BUN 5, creatinine 0.5. IMPRESSION: A 43-year-old with 1. Pneumonia. 2. Empyema with ongoing purulent drainage. 3. Ongoing tobacco use and nicotine addiction at the time of admission. PLAN: 1. Continue to encourage incentive spirometer/bronchial hygiene. 2. Continue antibiotics per Infectious Disease. 3. Encourage smoking cessation. 4. Chest tube management per General Surgery. cc: Bryon Cobian MD
[2019-03-24] MEDS: LOVENOX SUBQ SCH (20:06)
[2019-03-24] MEDS: DULCOLAX PR SCH (20:14)
[2019-03-25] MEDS: ZOSYN 3.375 GM in NS 50 ML IV SCH ×3 (01:05→14:22)
[2019-03-25] MEDS: PERCOCET-10 PO PRN ×3 (01:05→23:03)
[2019-03-25] MEDS: DILAUDID IV PRN ×7 (01:59→20:47)
[2019-03-25] MEDS: VANCOMYCIN 2,000 MG in NS 500 ML IV SCH ×2 (03:12→14:22)
[2019-03-25] MEDS: DUONEB (A & A) INH SCH ×6 (03:24→23:06)
[2019-03-25 05:51] LABS: BASO# 0.03 X1000 (0.0-0.2); BASO% 0.2 % (0.0-0.8); EOS# 0.12 X1000 (0.0-0.7); EOS% 0.8 % (0.0-10.0); HEMATOCRIT 29.8 % (42.0-52.0); HEMOGLOBIN 9.3 g/dL (14.0-18.0); IMM GRAN# 0.29 X1000 (0.0-0.04); IMM GRAN% 1.8 % (0.0-0.5); LYMPH# 1.87 X1000 (1.2-3.4); LYMPH% 11.9 % (20.5-51.1); MCH 28.4 PG (27-31); MCHC 31.2 g/dL (33-37); MCV 90.9 FL (81-99); MONO# 1.25 X1000 (0.11-0.59); MONO% 7.9 % (1.7-9.3); MPV 8.7 FL (7.4-10.4); NEUT# 12.18 X1000 (1.4-6.5); NEUT% 77.4 % (42.2-75.2); PLT 586 X1000 (130-400); RBC 3.28 XMIL (4.7-6.1); RDW 14.9 % (11.5-14.5); WBC 15.74 X1000 (4.8-10.8)
[2019-03-25 06:34] LABS: AGAP 9; BUN 6 mg/dL (8-22); CALCIUM 8.5 mg/dL (8.8-10.2); CHLORIDE 91 mmol/L (98-107); COSMO 250; CREATININE 0.6 mg/dL (0.7-1.2); ESTIMATED GFR > 60; GLUCOSE 83 mg/dL (70-104); SODIUM 126 mmol/L (136-145); TCO2 26 mmol/L (25-35)
--- NOTE | 2019-03-25 07:20 | Diag Imaging Result Doc PS360 ---
EXAM: CHEST-PORTABLE 03/25/2019 HISTORY: s/p VATS TECHNIQUE: AP portable at 0527 COMMENT: There are two chest tubes in the right hemithorax. There is an atelectatic opacity in the left costophrenic angle laterally. There is alveolar opacification in the right lower lobe and middle lobe. This has not changed appreciably since 03/24/2019. IMPRESSION: Stable chest. Electronically signed by Brock Padilla 03/25/2019 7:18 AM
[2019-03-25] MEDS: COLACE PO SCH ×2 (08:12→20:49)
[2019-03-25] MEDS: LACTULOSE PO SCH ×3 (08:12→20:47)
[2019-03-25] MEDS: ICAR-C PO SCH ×2 (08:12→20:49)
[2019-03-25] MEDS: MIRALAX PO SCH ×2 (08:12→20:47)
--- NOTE | 2019-03-25 09:50 | PROVIDER PROGRESS NOTE ---
Progress Note Will see PRN. Please reconsult if needed
--- NOTE | 2019-03-25 15:00 | PROGRESS NOTE ---
DATE: 03/25/2019 SUBJECTIVE: The patient is sitting up in bed, resting. He has no complaints at this time. He does complain of pain in his right chest wall where the chest tubes are located. OBJECTIVE: Vital Signs: Temperature 97.9 degrees blood pressure 134/79, heart rate 91, respirations 17, O2 saturation is 97% on 2 L nasal cannula. General: This is a chronically ill- appearing, elderly male lying in bed, in no acute distress. Heart: S1, S2 normal. Tachycardic. Lungs: Diminished breath sounds in the right lung field. No wheezing. Abdomen: Positive bowel sounds. Soft, nontender, nondistended. Extremities: No edema, no cyanosis. Neurologic: The patient is alert and oriented x3. Labs: White blood cell count 15, hemoglobin 9.3, hematocrit 29, platelets 586,000. Sodium 126, potassium 4, chloride 91, CO2 of 26, BUN 6, creatinine 0.6, glucose 83. ASSESSMENT AND PLAN: 1. Acute hypoxemic respiratory failure. Continue to try and wean the patient off of supplemental oxygen. 2. Status post video-assisted thoracoscopy with decortication secondary to a right-sided empyema. Continue with chest tube management as directed by the general surgeon. Continue with supplemental oxygen. 3. Pneumonia. Continue on the current antibiotic regimen. 4. Hyponatremia. Will place the patient on fluid restriction. 5. Severe protein calorie malnutrition. Continue with Ensure with each meal. 6. Iron deficiency anemia. Continue with iron supplementation. 7. Tobacco dependence. Continue to marriage counselor the patient on smoking cessation. 8. Deep vein thrombosis prophylaxis. Continue on Lovenox. cc: Nita Barreto MD MTDD
[2019-03-25] MEDS: FLAGYL PO SCH ×2 (15:27→20:58)
[2019-03-25] MEDS: ROCEPHIN 2 GM in NS 50 ML IV SCH (15:28)
--- NOTE | 2019-03-25 17:50 | INFECTIOUS DISEASE PROGRESS NO ---
DATE: 03/25/2019 PRESENT ILLNESS: The patient has pneumonia and is status post surgery for an empyema involving the right side. MEDICATIONS: The patient is on a combination of vancomycin and Zosyn. PHYSICAL EXAMINATION: Vital Signs: Temperature is 97.9 degrees, pulse 91, respirations 17, blood pressure is 134/79. General: This is a chronically ill-appearing, middle-aged male. He is in no acute distress. Head, Eyes, Ears, Nose, and Throat: He can hear my spoken words and see near objects. He does not have any white patches in his mouth. Neck: No pain with movement. Thorax: The patient has [address] on the right side. Lungs: Clear on the left side. There were decreased breath sounds on the right side. Cardiovascular: Heart rate is regular. Abdomen: Soft and not tender. Neurologic: The patient is alert. He can move his extremities. There is no tremor. LABORATORY AND X-RAY: The patient's culture from the chest grew Fusobacterium. CBC shows a white count of 15,740, hemoglobin 9.3, and platelet count 586,000. Creatinine is 0.6, GFR is greater than 60. Chest x-ray shows right lower lobe and right middle lobe opacities. The left lung is clear, and the right upper lobe is clear. The patient's CBC shows a white count of 15,740, hemoglobin 9.3, platelet count 586,000. Creatinine 0.6, GFR is greater than 60. ASSESSMENT AND PLAN: Patient has pneumonia and is status post surgery for empyema. I am going to discontinue Zosyn and place the patient on a combination of Rocephin and Flagyl. Some of the side effects of the antibiotics, including rash, diarrhea, and avoiding alcohol, have been explained to the patient who agrees with treatment. COMORBIDITIES: Cigarette smoking, chronic obstructive pulmonary disease, and protein-calorie malnutrition. cc: Fransico Mac MD
--- NOTE | 2019-03-25 20:29 | GENERAL SURGERY PROGRESS NOTE ---
DATE: 03/25/2019 SUBJECTIVE: Feels much better. No fevers. Tachycardia is much improved. He is down to 1 L nasal cannula. He is alert. Right chest tubes are in place. No air leak to water seal, both are draining purulent material, more so out the apical tube than the right angle tube. Reviewed his labs. Persistent leukocytosis but this has been stable. 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 I talked to Dr. Mac about. PLAN: Will continue his chest tube given the ongoing purulent drainage. I do think we could remove the 90 degree tube in the near future. This would help with pulmonary toileting but will continue for now. He is on Lovenox. He is on nebulizer treatments and antibiotics. cc: Grace Chin MD MTDD
[2019-03-25] MEDS: LOVENOX SUBQ SCH (20:48)
[2019-03-25] MEDS: DULCOLAX PR SCH (20:48)
[2019-03-26] MEDS: DILAUDID IV PRN ×8 (00:07→21:33)
[2019-03-26] MEDS: DUONEB (A & A) INH SCH ×5 (03:38→20:14)
[2019-03-26] MEDS: FLAGYL PO SCH ×3 (05:23→21:29)
[2019-03-26 06:07] LABS: BASO# 0.03 X1000 (0.0-0.2); BASO% 0.2 % (0.0-0.8); EOS# 0.06 X1000 (0.0-0.7); EOS% 0.5 % (0.0-10.0); HEMATOCRIT 27.8 % (42.0-52.0); HEMOGLOBIN 8.8 g/dL (14.0-18.0); IMM GRAN# 0.23 X1000 (0.0-0.04); IMM GRAN% 1.8 % (0.0-0.5); LYMPH# 1.39 X1000 (1.2-3.4); LYMPH% 10.8 % (20.5-51.1); MCH 28.6 PG (27-31); MCHC 31.7 g/dL (33-37); MCV 90.3 FL (81-99); MONO# 1.03 X1000 (0.11-0.59); MPV 8.6 FL (7.4-10.4); NEUT# 10.14 X1000 (1.4-6.5); NEUT% 78.7 % (42.2-75.2); PLT 553 X1000 (130-400); RBC 3.08 XMIL (4.7-6.1); WBC 12.88 X1000 (4.8-10.8)
[2019-03-26 06:36] LABS: AGAP 10; BUN 6 mg/dL (8-22); CALCIUM 8.9 mg/dL (8.8-10.2); CHLORIDE 91 mmol/L (98-107); COSMO 259; CREATININE 0.5 mg/dL (0.7-1.2); ESTIMATED GFR > 60; GLUCOSE 106 mg/dL (70-104); POTASSIUM 3.9 mmol/L (3.5-5.1); SODIUM 130 mmol/L (136-145); TCO2 29 mmol/L (25-35)
[2019-03-26] MEDS: ICAR-C PO SCH ×2 (09:59→21:29)
[2019-03-26] MEDS: MIRALAX PO SCH ×2 (09:59→21:29)
[2019-03-26] MEDS: COLACE PO SCH ×2 (09:59→21:30)
[2019-03-26] MEDS: LACTULOSE PO SCH ×2 (10:00→21:28)
[2019-03-26] MEDS: ROCEPHIN 2 GM in NS 50 ML IV SCH (14:10)
--- NOTE | 2019-03-26 16:15 | PROGRESS NOTE ---
DATE: 03/26/2019 INTERVAL HISTORY: The patient with some stable discomfort associated with this chest tubes, but otherwise no complaints. No acute events overnight. Continue purulent drainage from his chest tubes. REVIEW OF SYSTEMS: Twelve point review of systems negative except as per interval history. LABS: WBC 12.8, hemoglobin 8.8, hematocrit 27.8, platelets 553,000. Sodium 130, potassium 3.9, BUN 6, creatinine 0.5, glucose 106. IMAGING: Chest x-ray yesterday essentially stable with chest tubes in place. Opacity in the right lower and middle lobe. VITALS: T-max 98.4 degrees, pulse 106, respirations 17, blood pressure 133/84, O2 saturation 97% on room air. PHYSICAL EXAMINATION: General: No acute distress. Vitals: As above. HEENT: Normocephalic, atraumatic. Moist mucous membranes. No cervical adenopathy. Cardiovascular: Slightly tachycardic but regular. No murmurs noted. Pulmonary: Diminished breath sounds in the right generally, especially the right lower. No wheezing. Good air entry otherwise. Abdomen: Soft, nontender, nondistended. Bowel sounds positive. Extremities: Peripheral pulses intact. No clubbing or cyanosis. Neurologic: Patient alert. Cranial nerves grossly intact. No focal deficits identified. Psychiatric: Normal mood and affect. Awake, alert, oriented x3. ASSESSMENT AND PLAN: 1. Acute hypoxic respiratory failure secondary to pneumonia and empyema. Hypoxia resolved at this point. Weaned off oxygen entirely. still dealing with empyema as below. 2. Pneumonia, empyema. Oxygenation much improved but still with purulent drainage from his chest tubes. Continue antibiotics and chest tube drainage. Monitor. 3. Cultures growing of Fusobacterium nucleatum with sensitivities pending. 4. Hyponatremia, mild, stable. Continue to monitor. Continue fluid restriction. 5. Anemia. Slight downtrend over the course of hospitalization, but no obvious source of bleeding. Continue to monitor. 6. Tobacco abuse. Patient has been counseled on cessation. [facility]
--- NOTE | 2019-03-26 20:21 | GENERAL SURGERY PROGRESS NOTE ---
DATE: 03/26/2019 SUBJECTIVE: No fevers. He feels better. Breathing is improved. OBJECTIVE: On exam, no fevers. No tachycardia. Chest tubes continued to drain purulent material greater than 100 mL out of both tubes. DIAGNOSTIC DATA: I reviewed labs. White count continues down trend, there is no air leak in his chest tube. ASSESSMENT/PLAN: 43-year-old gentleman with an empyema of the right chest. We will keep his chest tubes for now as they continue to both drain purulent material and they are in different locations but the 90 degree tube does seem to be downtrending. We can probably remove that in the next 24-48 hours. He is on appropriate antibiotics. Dr. Mac is following. Continue aggressive pulmonary toileting. He needs physical therapy and out of bed and ambulating. cc: Grace Chin MD
[2019-03-26] MEDS: LOVENOX SUBQ SCH (21:29)
[2019-03-26] MEDS: DULCOLAX PR SCH (21:30)
[2019-03-27] MEDS: DILAUDID IV PRN ×8 (00:29→22:24)
[2019-03-27] MEDS: ZOFRAN IV PRN (00:33)
[2019-03-27] MEDS: DUONEB (A & A) INH SCH ×7 (01:37→23:55)
[2019-03-27] MEDS: FLAGYL PO SCH ×3 (04:30→22:26)
[2019-03-27 06:55] LABS: BASO# 0.07 X1000 (0.0-0.2); BASO% 0.5 % (0.0-0.8); EOS# 0.05 X1000 (0.0-0.7); EOS% 0.3 % (0.0-10.0); HEMATOCRIT 29.2 % (42.0-52.0); HEMOGLOBIN 9.2 g/dL (14.0-18.0); IMM GRAN# 0.11 X1000 (0.0-0.04); IMM GRAN% 0.8 % (0.0-0.5); LYMPH# 1.72 X1000 (1.2-3.4); MCH 28.5 PG (27-31); MCHC 31.5 g/dL (33-37); MCV 90.4 FL (81-99); MONO# 1.07 X1000 (0.11-0.59); MONO% 7.4 % (1.7-9.3); MPV 8.5 FL (7.4-10.4); NEUT# 11.36 X1000 (1.4-6.5); PLT 500 X1000 (130-400); RBC 3.23 XMIL (4.7-6.1); RDW 15.4 % (11.5-14.5); WBC 14.38 X1000 (4.8-10.8)
[2019-03-27 07:26] LABS: AGAP 9; BUN 8 mg/dL (8-22); CALCIUM 8.8 mg/dL (8.8-10.2); CHLORIDE 90 mmol/L (98-107); COSMO 256; CREATININE 0.6 mg/dL (0.7-1.2); ESTIMATED GFR > 60; GLUCOSE 101 mg/dL (70-104); SODIUM 128 mmol/L (136-145); TCO2 29 mmol/L (25-35)
[2019-03-27] MEDS: ICAR-C PO SCH ×2 (09:58→22:26)
[2019-03-27] MEDS: LACTULOSE PO SCH ×2 (09:59→22:27)
[2019-03-27] MEDS: COLACE PO SCH ×2 (09:59→22:27)
[2019-03-27] MEDS: MIRALAX PO SCH ×2 (09:59→22:27)
--- NOTE | 2019-03-27 12:18 | Diag Imaging Result Doc PS360 ---
CHEST-2 VIEWS - 03/27/2019 INDICATION: chest tube COMPARISON: 03/25/2019 FINDINGS: Stable double right chest tubes. There has been significant improvement in expansion of the lungs. There has been decrease in the opacification/collapse at the right lung base. Stable density or collection at the lateral right lung base. No new infiltrates. No pneumothorax. There is a small right pleural effusion. IMPRESSION: Improvement from prior. No complication. Electronically signed by Dannie Mitchell 03/27/2019 12:18 PM
[2019-03-27] MEDS: ROCEPHIN 2 GM in NS 50 ML IV SCH (15:08)
--- NOTE | 2019-03-27 18:19 | INFECTIOUS DISEASE PROGRESS NO ---
DATE: 03/27/2019 HISTORY OF PRESENT ILLNESS: The patient has pneumonia, and is status post surgery for decortication and empyema. MEDICATIONS: The patient is on a combination of Rocephin and Flagyl. PHYSICAL EXAMINATION: Vital Signs: Temperature 98.3 degrees, pulse 102, respirations 22, and blood pressure 129/87. General: This is a chronically ill-appearing middle-aged male. He is in no acute distress. Head/eyes/ears/nose/throat: He can hear my spoken words and see near objects. He does not have any white coating on his tongue. He has poor oral hygiene. Neck: No pain with movement. Thorax: Patient has an incision which has a dressing over it on the right side of the chest. Also, there are 2 drains present. Their sites too have dressings. Lungs: The left lung was clear. The right side is having breath sounds that are getting louder. Cardiovascular: Heart rate is regular. Abdomen: Soft and nontender. Neurologic: The patient is alert. He is able to ambulate. There is no tremor. LABORATORY AND X-RAY: There is no new radiographic study. CBC shows a white count of 14,380, hemoglobin 9.2, and platelet count 500,000. Creatinine is 0.6. GFR is greater than 60. ASSESSMENT AND PLAN: Patient has pneumonia, and is status post surgery for an empyema. I plan on continuing Rocephin and Flagyl. COMORBIDITIES: Cigarette smoking, chronic obstructive pulmonary disease, and protein calorie malnutrition. cc: Fransico Mac MD
--- NOTE | 2019-03-27 19:52 | PROGRESS NOTE ---
DATE: 03/27/2019 INTERVAL HISTORY: Patient approximately the same, slightly less discomfort around his chest tubes. Still with [address], both draining purulent material, although 1 appears to be decreasing somewhat. No acute events. No new complaints. REVIEW OF SYSTEMS: Twelve-point review of systems negative except as per interval history. LABS: WBC 14.3, hemoglobin 9.2, hematocrit 29.2, platelets 500,000. Sodium 128, potassium 4, BUN 8, creatinine 0.6 glucose 101. IMAGING: Chest x-ray with some improvement in prior collapse of the right base VITALS: T-max 98.6 degrees, pulse 102, respirations 20, blood pressure 120/81, O2 saturation 97% on 1 L by nasal cannula. PHYSICAL EXAMINATION: General: No acute distress. Vitals: As above. HEENT: Normocephalic, atraumatic. Moist mucous membranes. No cervical adenopathy. Cardiovascular: Minimally tachycardic but regular. No murmurs noted. Pulmonary: Still with diminished breath sounds at the right base. Chest tubes in place. No wheezing and good air entry elsewhere. Abdomen: Soft, nontender, nondistended. Bowel sounds positive. Extremities: Peripheral pulses intact. No clubbing, cyanosis, or edema. Neurologic: Cranial nerves grossly intact. No focal deficits seen. Psychiatric: Normal mood and affect. Awake, alert, oriented x3. ASSESSMENT AND PLAN: 1. Acute hypoxic respiratory failure secondary to pneumonia and empyema. Hypoxia resolved, but continuing to have issues with ongoing empyema and purulent drainage from his chest tubes. 2. Pneumonia, empyema. Continuing antibiotics with metronidazole and Rocephin. Chest tubes remain in place and draining purulent drainage. Anticipate discharge once his drainage decreases enough to get the chest tubes out. Uncertain how long that is going to take; however, cultures are growing Fusobacterium nucleatum with sensitivities still pending. 3. Anemia, essentially stable over the last several days. Continue to monitor. 4. Tobacco abuse. The patient has been counseled on cessation. 5. hyponatremia: slightly worse today. patient with 1.5L fluid restriction ordered but when I discussed this with the patient it did not seem that he had been instructed on sticking to that. educated patient. will see what his labs look like in the morning. [facility]
--- NOTE | 2019-03-27 22:02 | GENERAL SURGERY PROGRESS NOTE ---
DATE: 03/27/2019 SUBJECTIVE: He continues to feel well. No fevers. OBJECTIVE: Vital signs: Pulse is in the low 100s. Blood pressure 120/81. General: He is alert. Respiratory: Chest tubes are intact. There is purulent drainage in both greater than 100 mL out of both, 110 and 220. Chest tube #2, the anterior tube, has significantly increased by almost 200 mL overnight. LABORATORY DATA: White count remains elevated fluctuates. IMAGING: I reviewed his chest x-ray that shows continued improvement in the lung. Areas of persisting consolidation possible, pocket of fluid inferiorly and posteriorly. ASSESSMENT AND PLAN: A 43-year-old gentleman status post empyema drainage. He had 2 chest tubes, both of which were putting out a couple 100 mL of purulent material. He is on appropriate antibiotics. Clinically, he continues to improve. In the near future, I again think we can get the 90-degree tube out, but given his continued production that is anteriorly oriented and we have 1 posteriorly oriented, I worry about taking out too soon. We will follow along. cc: Grace Chin MD
[2019-03-27] MEDS: LOVENOX SUBQ SCH (22:26)
[2019-03-27] MEDS: DULCOLAX PR SCH (22:26)
[2019-03-28] MEDS: PERCOCET-10 PO PRN ×3 (00:12→10:07)
[2019-03-28] MEDS: DILAUDID IV PRN ×5 (01:23→17:13)
[2019-03-28] MEDS: FLAGYL PO SCH ×3 (04:25→21:03)
[2019-03-28] MEDS: DUONEB (A & A) INH SCH ×6 (05:28→23:52)
[2019-03-28] MEDS: ICAR-C PO SCH ×3 (07:40→21:03)
--- NOTE | 2019-03-28 08:50 | Diag Imaging Result Doc PS360 ---
CHEST-2 VIEWS - 03/28/2019 INDICATION: chest tube COMPARISON: 03/27/2019 FINDINGS: Stable double right chest tubes. No definite pneumothorax. Stable small right pleural effusion. Stable focal opacity in the right lung base laterally. The left lung remains clear. Heart size and pulmonary vascularity is normal. IMPRESSION: No change from prior. Electronically signed by Dannie Mitchell 03/28/2019 8:48 AM
[2019-03-28] MEDS: COLACE PO SCH ×2 (09:41→21:01)
[2019-03-28] MEDS: MIRALAX PO SCH ×2 (09:41→21:01)
[2019-03-28] MEDS: LACTULOSE PO SCH ×2 (09:41→21:02)
[2019-03-28] MEDS: NORCO-10 PO PRN ×3 (13:24→21:03)
[2019-03-28] MEDS: ROCEPHIN 2 GM in NS 50 ML IV SCH ×2 (13:24→15:52)
--- NOTE | 2019-03-28 18:13 | PROGRESS NOTE ---
DATE: 03/28/2019 INTERVAL HISTORY: The patient is approximately the same. Still having purulent drainage out of his 2 chest tubes, although it continues to decrease slowly and output is perhaps slightly less purulent today. Remains afebrile with good O2 saturations. His only complaint remains discomfort associated with his chest tubes. Discussed with the patient that it is likely time started weaning off the IV narcotics at this point. The patient expressed understanding. REVIEW OF SYSTEMS: Twelve point review of systems negative except as per interval history. LABORATORY DATA: WBC 14.3, hemoglobin 9.2, hematocrit 29.2, platelets 500,000. Sodium 128, potassium 4, bicarb 29, BUN 8, creatinine 0.6, glucose 101. IMAGING: Chest x-ray with essentially no change from prior. VITALS: T-max 99.7, pulse 115, respirations 18, blood pressure 133/86. O2 saturation 97% on room air. PHYSICAL EXAMINATION: General: No acute distress. Vitals: As above. HEENT: Normocephalic, atraumatic. Moist mucous membranes. No cervical adenopathy. Cardiovascular: Slightly tachycardic but regular. No murmurs noted. Pulmonary: Remains decreased at the right base although a little less than previous. Chest tubes x2 in place with slightly less purulent drainage. Abdomen: Soft, nontender, nondistended. Bowel sounds positive. Extremities: Peripheral pulses intact. No clubbing, cyanosis. Neurologic: Cranial nerves grossly intact. No focal deficits. Psychiatric: Normal mood and affect. Awake, alert, oriented x3. ASSESSMENT AND PLAN: 1. Acute hypoxemic respiratory failure secondary to pneumonia and empyema. Hypoxia resolved. Still with ongoing purulent drainage from his chest tubes. 2. Pneumonia, empyema. On antibiotics with metronidazole and Rocephin. We will continue. Chest tubes remain in place with slowly decreasing purulent drainage. Cannot really get him out of the hospital until the drainage stops or clears and we can get the chest tubes out. Both amount and purulence of drainage appears to be slightly decreased today so hopeful that we may be able to get these out in the next few days, but we will have to see what happens. Cultures growing Fusobacterium nucleatum. Beginning the process of weaning patient off of IV high-dose IV Dilaudid. Oral pain medicine as well as IV Toradol available to the patient. 3. Anemia stable monitor. 4. Tobacco abuse patient counseled on cessation. 5. Hyponatremia. Repeat test tomorrow. Continue 1.5 L fluid restriction.
[2019-03-28] MEDS: DULCOLAX PR SCH (21:03)
[2019-03-28] MEDS: LOVENOX SUBQ SCH (21:03)
[2019-03-29] MEDS: TORADOL IV PRN ×3 (00:11→23:14)
[2019-03-29] MEDS: DILAUDID IV PRN ×3 (01:01→20:55)
[2019-03-29] MEDS: DUONEB (A & A) INH SCH ×5 (03:38→19:39)
[2019-03-29] MEDS: FLAGYL PO SCH ×4 (06:10→20:54)
[2019-03-29] MEDS: NORCO-10 PO PRN ×3 (06:10→16:36)
[2019-03-29 06:39] LABS: BASO# 0.05 X1000 (0.0-0.2); BASO% 0.5 % (0.0-0.8); EOS# 0.03 X1000 (0.0-0.7); EOS% 0.3 % (0.0-10.0); HEMATOCRIT 27.6 % (42.0-52.0); HEMOGLOBIN 8.6 g/dL (14.0-18.0); IMM GRAN# 0.06 X1000 (0.0-0.04); IMM GRAN% 0.6 % (0.0-0.5); LYMPH# 1.49 X1000 (1.2-3.4); LYMPH% 14.1 % (20.5-51.1); MCH 28.3 PG (27-31); MCHC 31.2 g/dL (33-37); MCV 90.8 FL (81-99); MONO# 0.75 X1000 (0.11-0.59); MONO% 7.1 % (1.7-9.3); MPV 8.5 FL (7.4-10.4); NEUT# 8.19 X1000 (1.4-6.5); NEUT% 77.4 % (42.2-75.2); PLT 482 X1000 (130-400); RBC 3.04 XMIL (4.7-6.1); RDW 16.3 % (11.5-14.5); WBC 10.57 X1000 (4.8-10.8)
[2019-03-29 07:27] LABS: AGAP 9; BUN 12 mg/dL (8-22); CALCIUM 9.1 mg/dL (8.8-10.2); CHLORIDE 94 mmol/L (98-107); COSMO 264; CREATININE 0.6 mg/dL (0.7-1.2); ESTIMATED GFR > 60; GLUCOSE 93 mg/dL (70-104); POTASSIUM 4.1 mmol/L (3.5-5.1); SODIUM 132 mmol/L (136-145); TCO2 29 mmol/L (25-35)
[2019-03-29] MEDS: ICAR-C PO SCH ×2 (08:39→20:53)
[2019-03-29] MEDS: COLACE PO SCH ×3 (08:39→20:55)
[2019-03-29] MEDS: LACTULOSE PO SCH ×3 (08:39→20:59)
[2019-03-29] MEDS: MIRALAX PO SCH ×3 (08:39→20:59)
--- NOTE | 2019-03-29 11:36 | PROGRESS NOTE ---
DATE: 03/28/2019 HISTORY: Clinically, he is about the same. No fevers. Low-grade tachycardia. OBJECTIVE: Blood pressure 133/86. O2 saturation 100% on room air. In general, he is alert. Bilateral chest tubes are in place. Purulent drainage much less noted out of the anterior 90 degree tube. No air leak. LABORATORY: I reviewed his labs. Persistent leukocytosis, fluctuates, but he does not have any new labs this morning. I reviewed his x-ray from yesterday and today, overall improvement, but stable over the last 24 hours. No pneumothorax. Some residual consolidation, maybe a little lower fluid noted. ASSESSMENT AND PLAN: This is a gentleman with empyema. Plan is to remove his anterior tube today. I have done this at the bedside, and placed an occlusive dressing. We will follow his x- rays going forward, and plan for maybe removal of the posterior tube based off his output. We will continue to follow along. Aggressive pulmonary toileting, and pain control. cc: Grace Chin MD
--- NOTE | 2019-03-29 12:42 | Diag Imaging Result Doc PS360 ---
EXAM: CHEST-PORTABLE 03/29/2019 HISTORY: chest tube TECHNIQUE: AP portable at 1232 COMMENT: There is a chest tube in the right hemithorax. One of the tubes present on 03/28/2019 has been removed. There continues to be pleural thickening and/or loculated fluid in the lateral portion of the minor fissure and lateral pleura on the right. The left lung is clear and unchanged. The heart size and primary vascularity are within normal limits. IMPRESSION: No evidence of pneumothorax. No other acute abnormalities. Electronically signed by Brock Padilla 03/29/2019 12:39 PM
[2019-03-29] MEDS: ROCEPHIN 2 GM in NS 50 ML IV SCH (14:18)
--- NOTE | 2019-03-29 18:15 | PROGRESS NOTE ---
DATE: 03/29/2019 INTERVAL HISTORY: Patient now with 1 of his 2 chest tubes removed. The remaining chest tube is still with purulent drainage. Discussed the need to begin weaning him off of IV narcotics yesterday, and he does appear to be utilizing p.o. and non-narcotic options more and IV Dilaudid less. No new complaints. No acute events. The patient does report improved pain since having 1 of his chest tubes removed as well. REVIEW OF SYSTEMS: Twelve-point review of systems negative except as per interval history. LABS: WBC 10.5, hemoglobin 8.6, hematocrit 27.6, platelets 42. Sodium 132, potassium 4.1, BUN 12, creatinine 0.6, glucose 93. VITALS: T-max 98.3, pulse 114, respirations 28, blood pressure 116/84, O2 saturation 100% on room air. PHYSICAL EXAMINATION: General: No acute distress. Vitals: As above. HEENT: Normocephalic, atraumatic. Moist mucous membranes. No cervical adenopathy. Cardiovascular: Tachycardic but regular, which is unchanged. Pulmonary: Still a little decreased at the right base, although appears to be improving slowly. One of the chest tube now removed. Still with [address] with ongoing purulent drainage. Abdomen: Soft, nontender, nondistended. Bowel sounds positive. Extremities: Peripheral pulses intact. No clubbing or cyanosis. Neurologic: Cranial nerves grossly intact. No focal deficits. Psychiatric: Normal mood and affect. Awake, alert, oriented x3. ASSESSMENT AND PLAN: 1. Acute hypoxemic respiratory failure secondary to pneumonia and empyema. Hypoxia resolved, and pneumonia likely resolved at this point, but still with empyema with ongoing purulent drainage from the chest tube. 2. Pneumonia, empyema. Remains on antibiotics with metronidazole on Rocephin, which we will plan to continue. Had 2 chest tubes, but 1 chest tube now removed. Second chest tube still with purulent drainage. We will continue to monitor and see what happens. Cultures grew out Fusobacterium nucleatum. Beginning the process of weaning the patient off of IV narcotics, and patient seems to be amenable to that. 3. Anemia which is stable. Continue to monitor. 4. Hyponatremia, improved since reinforcing the patient's fluid restriction. Monitor. 5. Tobacco abuse. Patient has been counseled on cessation.
--- NOTE | 2019-03-29 18:38 | INFECTIOUS DISEASE PROGRESS NO ---
DATE: 03/29/2019 PRESENT ILLNESS: Mr. Ríos is being treated for pneumonia and is status post chest tube placement with drainage of right empyema. MEDICATIONS: He is receiving ceftriaxone 2 g IV every 24 hours, and Flagyl 500 mg by mouth every 8 hours. PHYSICAL EXAMINATION: Vital Signs: Temperature is 98.1 degrees, pulse rate 100, respiratory rate 18, blood pressure 117/78, O2 saturation 95% on room air. General: This is a chronically ill- appearing, middle-aged gentleman. He is sitting up in bed currently in no acute distress. HEENT: Atraumatic, normocephalic. Oral mucous membranes are pink and moist. Conjunctivae are pale. Neck: Supple. Trachea is midline. Cardiovascular: Heart rate is regular. S1, S2 noted. Respiratory: Lung sounds are bilaterally diminished but clear, 1 of the 2 chest tubes has been removed. There is some silva, purulent drainage noted in the tubing of the chest tube. Abdomen: Soft, flat and nontender. Bowel sounds are active. Neurologic: He is awake, alert and oriented and just got back from ambulating in hallway. LABORATORY AND X-RAY: Today his white count is 10.57, hemoglobin 8.6, platelet count 482,000, creatinine is 0.6, estimated GFR is greater than 60. His chest grew a Fusobacterium. No imaging reports today however yesterday his chest x-ray showed a stable focal opacity in the lateral right lung base with left lung clear. ASSESSMENT AND PLAN: Mr. Ríos has pneumonia and is status post video- assisted thoracoscopic surgery for empyema. He has had 1 chest tube taken out and the other chest tube still has some purulence. Today his white count is back to normal for the first time on this admission, so for now we will continue the Rocephin and Flagyl as ordered. These plans have been discussed with and recommended by Dr. Mac. COMORBIDITIES: Include cigarette smoking with chronic obstructive pulmonary disease and protein- calorie malnutrition. Dictated by ERIN Foote for Fransico Mac MD cc: Fransico Mac MD [facility] HOSPITALBeatriz
[2019-03-29] MEDS: DULCOLAX PR SCH (20:53)
[2019-03-29] MEDS: LOVENOX SUBQ SCH (20:54)
--- NOTE | 2019-03-29 22:37 | GENERAL SURGERY PROGRESS NOTE ---
DATE: 03/29/2019 SUBJECTIVE: Feels okay. No fevers. OBJECTIVE: Pulse in the low 100's. Blood pressure 136/88. General: He is alert. No air leak from the chest tube. Persistent purulent drainage of the remaining tube. White count is 10, hematocrit is 27, creatinine is 0.6. ASSESSMENT: I reviewed his x-ray that showed no pneumothorax and overall stable findings after the tube was removed. IMPRESSION AND PLAN: This is a 43-year-old gentleman with empyema of right chest. Continues to gradually improve. We removed his 90 degree tube. When the output from the remaining tube decreases, we will remove it as well. Otherwise aggressive pulmonary toileting, antibiotics, follow along. cc: Grace Chin MD
[2019-03-30] MEDS: DUONEB (A & A) INH SCH ×7 (00:06→23:07)
[2019-03-30] MEDS: NORCO-10 PO PRN ×5 (02:47→22:48)
[2019-03-30] MEDS: FLAGYL PO SCH ×3 (05:17→20:17)
[2019-03-30] MEDS: TORADOL IV PRN (06:23)
[2019-03-30] MEDS: ICAR-C PO SCH ×2 (08:00→20:16)
[2019-03-30] MEDS: COLACE PO SCH (08:00)
[2019-03-30] MEDS: LACTULOSE PO SCH ×2 (08:01→20:18)
[2019-03-30] MEDS: MIRALAX PO SCH ×2 (08:01→20:18)
[2019-03-30] MEDS: DILAUDID IV PRN ×2 (14:41→20:15)
--- NOTE | 2019-03-30 15:34 | PROGRESS NOTE ---
DATE: 03/30/2019 INTERVAL HISTORY: No acute events overnight. His pulse remained between 90s to 120s. His family is at bedside. I reviewed his chest x-rays. Mr. Ríos also tells me that he previously had irregular heart rhythm. I will get an EKG. SUBJECTIVE: He denies any chest pain, shortness of breath. He denies any nausea, vomiting, or abdominal pain. He is feeling better. We discussed about continue keeping a close eye over output from the chest tube. I answered all of his questions. VITAL SIGNS: Current temperature 98.5 degrees, pulse 109, respiratory 18, blood pressure 120/70, saturating 99% room air. PHYSICAL EXAMINATION: General: Not in acute distress. HEENT: Oral cavity is moist. Chest: He also has a right-sided chest tube which is connected to drainage system. Lungs: He has decreased air entry with inspiratory crackles in the right infrascapular region. Adequate air entry on light left hemithorax. Cardiovascular: S1, S2 normal. Appears regular. No murmur, rub or gallop. Abdomen: Soft, nontender. Extremity: No lower extremities edema. Neurologic: He is alert and oriented x3. I counseled him about smoking cessation. LABORATORY DATA: No CBC or BMP today, which have been ordered to be performed tomorrow. ASSESSMENT AND PLAN: 1. Empyema around right lung with culture growing Fusobacterium. Continue intravenous ceftriaxone and metronidazole as per Infectious Disease recommendation. Continue chest tube management as per General Surgery management. I will keep him on inhaled bronchodilators as needed as well as oral and IV narcotic pain medications as needed. He was counseled about smoking cessation and he agreed to. 2. Active tobacco abuse. He denies any craving for it at the moment. I will give him a nicotine patch if required in the future. 3. Constipation, now improving. I will keep him on MiraLAX and bisacodyl. 4. Others. Acute hypoxic respiratory failure due to right lung pneumonia and empyema has resolved. His hyponatremia has been stable. His anemia has been stable. DISPOSITION: Monitor patient inside the hospital as we await removal of chest tube. Plan of care discussed with him and his family at bedside and their questions have been answered. cc: Bryan Jarrell MD
--- NOTE | 2019-03-30 15:45 | GENERAL SURGERY PROGRESS NOTE ---
DATE: 03/30/2019 SUBJECTIVE: He is sleeping comfortably this morning. OBJECTIVE: Vital Signs: No fevers. Pulse in the low 100s. Chest: Right chest tube in place. There is no air leak, persistent purulent drainage. LABORATORY DATA: His white count was normal yesterday at 10. Hematocrit stable. Creatinine 0.6. IMAGING: I reviewed his x-ray from yesterday. ASSESSMENT/PLAN: This is a 43-year-old gentleman with empyema. His output continues to decrease. I suspect we could remove his remaining tube in the next 24 to 48 hours. His x-ray is improved and his white count is now normal. We will follow along. cc: Grace Chin MD
[2019-03-30] MEDS: ROCEPHIN 2 GM in NS 50 ML IV SCH (16:38)
--- NOTE | 2019-03-30 18:01 | EKG Report ---
Test Performed on : 03/30/2019 1:11:00 PM Test Reason : tachycardia Blood Pressure : / mmHG Vent. Rate : 110 BPM Atrial Rate : 110 BPM P-R Int : 130 ms QRS Dur : 082 ms QT Int : 322 ms P-R-T Axes : 076 072 061 degrees QTc Int : 435 ms Sinus tachycardia. Otherwise normal ECG When compared with ECG of 19-MAR-2019 08:44, (Unconfirmed) premature ventricular complexes. are no longer present Confirmed by Ryu Clark MD ([id number]) on 04/03/2019 11:07:00 AM
[2019-03-30] MEDS: LOVENOX SUBQ SCH (20:16)
[2019-03-30] MEDS: DULCOLAX PR SCH (20:17)
[2019-03-31] MEDS: DILAUDID IV PRN ×4 (02:27→18:35)
[2019-03-31] MEDS: DUONEB (A & A) INH SCH ×6 (03:57→22:42)
[2019-03-31] MEDS: NORCO-10 PO PRN ×4 (04:27→20:23)
[2019-03-31] MEDS: FLAGYL PO SCH ×3 (04:33→20:23)
[2019-03-31 07:14] LABS: BASO# 0.04 X1000 (0.0-0.2); BASO% 0.4 % (0.0-0.8); EOS# 0.03 X1000 (0.0-0.7); EOS% 0.3 % (0.0-10.0); HEMATOCRIT 29.1 % (42.0-52.0); IMM GRAN# 0.05 X1000 (0.0-0.04); IMM GRAN% 0.5 % (0.0-0.5); LYMPH# 1.38 X1000 (1.2-3.4); LYMPH% 13.8 % (20.5-51.1); MCH 28.2 PG (27-31); MCHC 30.9 g/dL (33-37); MCV 91.2 FL (81-99); MONO# 0.79 X1000 (0.11-0.59); MONO% 7.9 % (1.7-9.3); MPV 8.4 FL (7.4-10.4); NEUT# 7.73 X1000 (1.4-6.5); NEUT% 77.1 % (42.2-75.2); PLT 545 X1000 (130-400); RBC 3.19 XMIL (4.7-6.1); WBC 10.02 X1000 (4.8-10.8)
[2019-03-31 07:38] LABS: AGAP 10; BUN 8 mg/dL (8-22); CHLORIDE 93 mmol/L (98-107); COSMO 261; CREATININE 0.6 mg/dL (0.7-1.2); ESTIMATED GFR > 60; GLUCOSE 96 mg/dL (70-104); SODIUM 131 mmol/L (136-145); TCO2 28 mmol/L (25-35)
[2019-03-31] MEDS: ICAR-C PO SCH ×3 (07:58→20:23)
[2019-03-31] MEDS: LACTULOSE PO SCH ×2 (08:04→20:26)
[2019-03-31] MEDS: MIRALAX PO SCH ×2 (08:04→20:26)
--- NOTE | 2019-03-31 14:48 | GENERAL SURGERY PROGRESS NOTE ---
DATE: 03/31/2019 SUBJECTIVE: Persistent purulent output from his chest tube. Respiratory butcher, he is improving. Low-grade tachycardia. No fevers. I reviewed his labs. White count remains normal. Creatinine 0.6. Has not had an x-ray today. We will get one tomorrow. ASSESSMENT/PLAN: 43-year-old gentleman status post empyema with chest tube drainage. His x-rays continued to improve. Output from his tube is decreasing. Suspect we can remove his apical tube tomorrow. Otherwise, continue pulmonary toilet and antibiotics. cc: Grace Chin MD
[2019-03-31] MEDS: ROCEPHIN 2 GM in NS 50 ML IV SCH (15:26)
--- NOTE | 2019-03-31 18:36 | PROGRESS NOTE ---
DATE: 03/31/2019 INTERVAL HISTORY: No acute events overnight. Mr. Ríos is complaining of some pain around the chest tube site. He has not had any fever. His chest tube output has been 20 mL. We discussed about getting an x-ray tomorrow morning and possibly chest tube removal plan as per surgical team's recommendation. VITALS: Temperature 98.2 degrees, pulse 111, respiratory 20, blood pressure 127/90, he is saturating 99% room air. PHYSICAL EXAMINATION: He is in mild distress because of right-sided chest wall pain. Oral cavity is moist. Air entry adequate on left side of the lung, left side of hemithorax. No wheeze, rhonchi. He has diminished respiratory effort more pronounced on auscultation on the right side because of pain.Abdomen: Scaphoid, soft, nontender. No lower extremity edema. He is alert and oriented x3. He has a chest tube on the right lateral chest region which has bandage is attached to a drainage tube. LABS: No leukocytosis, normocytic anemia, thrombocytosis, he does have normal electrolytes. No new microbiological or imaging data. Input and output suggest 20 mL output through the chest tube. ASSESSMENT AND PLAN: 1. Empyema around right lung with Fusobacterium and prior history of multifocal pneumonia diagnosed in early February 2019. Continue intravenous ceftriaxone and metronidazole as per ID recommendations and chest tube management as per General Surgery recommendation, plan is to get x-ray of his chest tomorrow and based on that possibly removing chest tube tomorrow. I will continue him on inhaled bronchodilators as needed, oral and IV narcotic pain medications. He was counseled about smoking cessation. 2. Active tobacco abuse. Continue nicotine patch in future if required. 3. Constipation now improving, continue bisacodyl, MiraLAX and lactulose. 4. Others. His acute hypoxic respiratory failure due to right lung pneumonia and empyema and loculated pleural effusion requiring video-assisted thoracoscopic surgery has resolved. His hyponatremia is stable. 5. Disposition. After his chest tube removal he may need repeat x-ray of his chest about 12 to 24 hours later. Based on that, I would anticipate discharge in next 24 to 48 hours. Plan of care discussed with patient. His questions have been answered satisfactorily. cc: Bryan Jarrell MD
[2019-03-31] MEDS: LOVENOX SUBQ SCH (20:23)
[2019-03-31] MEDS: DULCOLAX PR SCH (20:25)
[2019-04-01] MEDS: DILAUDID IV PRN ×4 (00:03→23:58)
[2019-04-01] MEDS: NORCO-10 PO PRN ×4 (02:21→20:31)
[2019-04-01] MEDS: DULCOLAX PR SCH ×2 (02:22→20:31)
[2019-04-01] MEDS: DUONEB (A & A) INH SCH ×5 (03:17→19:31)
[2019-04-01] MEDS: FLAGYL PO SCH ×3 (05:55→20:31)
--- NOTE | 2019-04-01 07:54 | Diag Imaging Result Doc PS360 ---
CHEST-2 VIEWS - 04/01/2019 INDICATION: chest tube COMPARISON: 03/29/2019 FINDINGS: Stable right chest tube in good position. Stable small effusion at the right lung base. There is been slight improvement in the faint infiltrate in the right lung base. The left lung is normally expanded and clear. Heart size is normal. IMPRESSION: Slight improvement in the faint right basilar infiltrate. No new abnormality. Electronically signed by Dannie Mitchell 04/01/2019 7:52 AM
[2019-04-01] MEDS: ICAR-C PO SCH ×2 (08:15→20:30)
[2019-04-01] MEDS: LACTULOSE PO SCH ×2 (08:16→20:32)
[2019-04-01] MEDS: MIRALAX PO SCH ×2 (08:16→20:32)
--- NOTE | 2019-04-01 09:58 | INFECTIOUS DISEASE PROGRESS NO ---
DATE: 04/01/2019 PRESENT ILLNESS: The patient is being treated for pneumonia and empyema. He is status post surgery on his empyema. MEDICATIONS: The patient is on Rocephin 2 g IV every 24 hours and Flagyl 500 mg p.o. every 8 hours. PHYSICAL EXAMINATION: Vital Signs: Temperature is 97.9 degrees, pulse 116, respirations 18, blood pressure 136/79. General: This is a chronically ill-appearing, middle-aged male. He is in no acute distress however, and he is looking better than he did a few weeks ago. Head/eyes/ears/nose/throat: He can hear my spoken words and see near objects. He does not have any white coating on his tongue. Neck: No pain with movement. Thorax: The patient's right chest incision and chest tube site have dressings on them. The dressings are intact. Lungs: Decreased breath sounds on the right side, clear on the left side. Cardiovascular: Heart rate is regular. Abdomen: Soft and not tender. Neurologic: The patient is alert. He is able to ambulate. There is no tremor. LAB AND X-RAY: Chest x-ray shows improvement in the right-sided infiltrate. The CBC shows a white count of 10,020, hemoglobin 9, platelet count 545,000. Creatinine is 0.6. GFR is greater than 60. ASSESSMENT AND PLAN: Patient has pneumonia and empyema. He has had surgery on the empyema. My plan is to continue for now the current antibiotics, namely Rocephin and Flagyl. I think when the patient's other tube is removed, he could most likely be sent home on an oral antibiotic such as Augmentin. COMORBIDITIES: Cigarette smoking, chronic obstructive pulmonary disease, protein calorie malnutrition. cc: Fransico Mac MD
[2019-04-01] MEDS ORDERED: DILAUDID IV ONE (17:15)
[2019-04-01] MEDS: ROCEPHIN 2 GM in NS 50 ML IV SCH (17:28)
--- NOTE | 2019-04-01 18:37 | Diag Imaging Result Doc PS360 ---
EXAM: CHEST-1 VIEW INDICATION: chest tube removal TECHNIQUE: One view COMPARISON: 04/01/2019 FINDINGS: There has been interval removal of the right chest tube. Right basilar infiltrate and/or atelectasis is unchanged. No definite pneumothorax is identified by plain radiograph. No new consolidation is identified. Cardiac silhouette is stable. IMPRESSION: Interval removal on the right chest tube. Grossly stable chest, otherwise. Electronically signed by Fabio Vazquez 04/01/2019 6:34 PM
--- NOTE | 2019-04-01 18:59 | PROGRESS NOTE ---
DATE: 04/01/2019 INTERVAL HISTORY: His right-sided chest tube was removed. He tolerated it well. He denies any complaints. PHYSICAL EXAMINATION: Vital Signs: Temperature 99.2 degrees, pulse 111, respiratory rate 18, blood pressure 119/80, saturating 98% room air. Lungs: Air entry bilaterally equal. No wheeze or rhonchi. He does have mild crackles in right infrascapular region. Abdomen: Scaphoid, soft, nontender. Extremity: No lower extremity edema. LABORATORY DATA: No new labs today. ASSESSMENT AND PLAN: 1. Empyema around right lung with Fusobacterium and prior history of multifocal pneumonia diagnosed in early February 2019. Continue intravenous ceftriaxone and metronidazole as per Infectious Disease recommendations. His chest tube has been removed on April 01. Followup post chest tube removal chest x-ray. He was counseled about smoking cessation. Continue oral and IV narcotic pain medications as needed. 2. Active tobacco abuse. He was counseled about smoking cessation. 3. Constipation now resolved. Continue bowel regimen. 4. His acute hypoxic respiratory failure due to right lung pneumonia and empyema and loculated pleural effusion requiring VATS has resolved. His hyponatremia is also stable. DISPOSITION: If the chest x-ray tomorrow morning is unremarkable without any increasing empyema, then plan will be to discharge him home if no surgical interventions are planned. I appreciate Infectious Disease recommendations regarding antibiotic management. cc: Bryan Jarrell MD
[2019-04-01] MEDS: LOVENOX SUBQ SCH (20:30)
[2019-04-01] MEDS: LIDODERM TOP SCH (20:30)
--- NOTE | 2019-04-01 20:45 | GENERAL SURGERY PROGRESS NOTE ---
DATE: 04/01/2019 SUBJECTIVE: Feels okay. No fevers, low-grade tachycardia which has overall been stable. Chest tube output is minimal for the last 2 days. No air leak. I reviewed his x-ray, reviewed his labs. ASSESSMENT/PLAN: 43-year-old gentleman empyema. I removed his remaining chest tube. Will check a chest x-ray this afternoon. I do think he is going to warrant further antibiotics but will defer to Dr. Mac whether he wants to do IV or oral. Will continue and follow him along but overall clinically he is improving. cc: Grace Chin MD
[2019-04-02] MEDS: NORCO-10 PO PRN ×4 (00:58→13:41)
[2019-04-02] MEDS: DUONEB (A & A) INH SCH ×3 (04:29→11:28)
[2019-04-02] MEDS: FLAGYL PO SCH (05:04)
[2019-04-02] MEDS: DILAUDID IV PRN ×2 (06:24→12:32)
--- NOTE | 2019-04-02 08:16 | Diag Imaging Result Doc PS360 ---
EXAM: CHEST-2 VIEWS HISTORY: Follow up Empyema TECHNIQUE: Two views COMPARISON: 04/01/2019 FINDINGS: The lungs are hyperexpanded and the pulmonary vessels are small. There are infiltrates and atelectasis in the mid and lower right lung similar to the prior exam. There is also small right pleural effusion. No left pleural effusion. No cardiomegaly. No pneumothorax. IMPRESSION: Stable chest Electronically signed by Otto Rob 04/02/2019 8:14 AM
[2019-04-02] MEDS: ICAR-C PO SCH (09:04)
[2019-04-02] MEDS: LIDODERM TOP SCH (09:05)
[2019-04-02] MEDS: MIRALAX PO SCH (09:06)
[2019-04-02] MEDS: LACTULOSE PO SCH (09:06)
[2019-04-02 11:39] VITALS: BP 128/89
--- NOTE | 2019-04-02 18:15 | INFECTIOUS DISEASE PROGRESS NO ---
DATE: 04/02/2019 The patient has a right-sided pneumonia and an empyema. The patient is status post video-assisted thoracoscopic drainage of the right empyema. The only organism cultured from the patient's surgery was a Fusobacterium. The patient has both of his chest tubes removed. He is being discharged today on Augmentin 875 mg p.o. every 12 hours #30 with 1 refill. Some of the side effects of Augmentin including rash and diarrhea have been explained to the patient who agrees with treatment. I have requested the patient have appointment in my office in 2 weeks at which time he will be examined, and a chest x-ray will be obtained. The prescription for Augmentin does have 1 refill so if the patient is continued on antibiotics he will be able to get it from the prescription that he is receiving today. Some of the side effects of Augmentin including rash and diarrhea have been explained to the patient who agrees with treatment. I have told the patient to take his Augmentin with food. cc: Fransico Mac MD
--- NOTE | 2019-04-02 22:40 | GENERAL SURGERY PROGRESS NOTE ---
DATE: 04/02/2019 SUBJECTIVE/OBJECTIVE: Doing well after chest tube removal. No fevers. No tachycardia. He wants to go home. His dressing is clean. DIAGNOSTIC DATA: I reviewed his labs and reviewed his x-ray. ASSESSMENT AND PLAN: This is a 43-year-old gentleman status post drainage of empyema. His chest tubes are out. His white count has been normal. He has had no fevers. Plan is to switch him to oral antibiotics and let him go home. I would like to see him within a week and repeat a chest x- ray. We have given postoperative instructions to the patient and he understands, but will defer disposition to the Medicine and Infectious Disease Services, but from a surgical perspective, I think he is okay. cc: Grace Chin MD
== END 2019-04-02 14:21 | disposition home or self-care (01) | DRG 163 ==
LOC: ED 08:22 → EDIPHOLD 11:52 → SUATTDRO 11:52 → ICU 15:38 → 2N 03-23 16:06 → 4N 03-26 22:33
PROVIDERS: ATTEND Internal Medicine
PROC: GE.THRS (2019-03-20 13:22)